=== PATIENT | female | born 1980 | race Caucasian/White ===

== ENCOUNTER 2016-06-24 15:35 | Inpatient (IN) | payer OTHER ==
[~2016-06-24] VITALS: Ht 149.9 cm; Wt 41.8 kg
[~2016-06-24 15:35] MED LIST: AMOX TR-K CLV1 EAC4 PO; AUGMENTIN875 MG PO; B-1100 MG PO; B-121000 MC2 PO; BACTRIM,SEPT1 TABLET PO; CELEXA10 M1 PO; CHLORDIAZEPOXID25 MG PO; CIPRO500 MG PO; CIPROFLOXACIN500 M1 PO; CYANOCOBALAM1000 MCG PO; DILANTIN INFATA50 MG PO; DILANTIN PO; DILANTIN100 MG PO; FOLBIC,FOLTX1 DOSE PO; FOLIC ACID1 MG PO; IRON325 M1 PO; IRON325 MG PO; KEFLEX500 MG PO; KEPPRA250 MG PO; KEPPRA750 MG PO; KLONOPIN1 MG PO; LIBRIUM25 MG PO; LORAZEPAM0.5 MG PO; MEDROXYPROGESTER5 MG PO; MEGACE40 MG PO; METRONIDAZOLE500 MG PO; Motrin PO; NICOTINE PATCH1 EAC1 TD; NICOTINE PATCH1 EAC2 TD; NO HOME MEDS; NOHOMEMEDS; PANTOPRAZOLE SO40 MG PO; PHENYTOIN50 MG PO; SEROQUEL100 MG PO; SEROQUEL300 MG PO; SEROQUEL400 MG PO; SERTRALINE HCL50 MG PO; THERAGRAN1 TABLET PO; THIAMINE HCL100 MG PO; VITAMIN B-1100 MG PO; VITAMIN B-121000 MCG PO; VITAMIN B12-FO1 EACH PO; XIFAXAN550 MG PO; ZOFRAN ODT4 MG PO; ZOFRAN4 MG PO; ZOLOFT100 MG PO; celeXA PO
[2016-06-24 17:09] LABS: EOSINOPHIL (%) 0 % (0-5); HEMATOCRIT 30.7 % (36.0-46.0); IMMATURE GRANULOCYTE (%) 0.3 % (0.0-0.7); IMMATURE GRANULOCYTE COUNT 0.5 K/uL; LYMPHOCYTE COUNT 0.5 K/uL (1.0-2.8); MCH 34.2 PG (29.0-34.0); MCHC 34.2 G/DL (30.0-36.0); MEAN PLAT.VOLUME 9.6 uM^3 (9.5-12.4); MONOCYTE (%) 4.1 % (3-12); MONOCYTE COUNT 0.8 K/uL (0-0.8); NEUTROPHIL (%) 92.7 % (45-76); NEUTROPHIL COUNT 18.6 K/uL (1.8-6.4); PLATELET COUNT 178 K/uL (156-360); RBC DIS.WIDTH-CV 15.4 % (11.8-14.6); RBC DIS.WIDTH-SD 52.9 % (39-53); RED BLOOD COUNT 3.07 M/uL (3.80-5.20)
[2016-06-24 17:17] LABS: INTER. NORMALIZED RATIO 1.2; PROTHROMBIN TIME 12.7 (9.2-11.2)
[2016-06-24 17:20] LABS: CHLORIDE 100 mEq/L (99-109); POTASSIUM 3.2 mEq/L (3.7-5.4); SODIUM 145 mEq/L (136-147)
[2016-06-24 17:22] LABS: GLUCOSE 86 mg/dL (70-99)
[2016-06-24 17:24] LABS: ANION GAP 29 MEQ/L (2-14); TOTAL BILIRUBIN 1.7 mg/dL (0.0-1.0)
[2016-06-24 17:25] LABS: SERUM ETHYL ALCOHOL 151 mg/dL
[2016-06-24 17:26] LABS: ALKALINE PHOSPHATASE 277 IU/L (3-129); GFR ESTIMATE (CALCULATED) > 59 mL/min/
[2016-06-24 17:27] LABS: UREA NITROGEN (BUN) 5 mg/dL (9-23)
[2016-06-24 17:35] LABS: QUANTITATIVE HCG < 4.0 MIU/ML
[2016-06-24] MEDS ORDERED: NITROSTAT0.4 MG SL (19:46)
[2016-06-24 23:20] VITALS: BP 115/57
[2016-06-25] VITALS (7 sets, daily range): BP systolic 88–102; BP diastolic 50–64
[2016-06-25 01:10] LABS: C-REACTIVE PROTEIN 7.8 MG/L (0-10)
[2016-06-25 04:53] LABS: CHLORIDE 103 mEq/L (99-109); POTASSIUM 3.1 mEq/L (3.7-5.4); SODIUM 138 mEq/L (136-147)
[2016-06-25 04:55] LABS: GLUCOSE 94 mg/dL (70-99)
[2016-06-25 04:57] LABS: ANION GAP 15 MEQ/L (2-14); TOTAL BILIRUBIN 1.5 mg/dL (0.0-1.0)
[2016-06-25 04:59] LABS: GFR ESTIMATE (CALCULATED) > 59 mL/min/
[2016-06-25 05:00] LABS: UREA NITROGEN (BUN) 3 mg/dL (9-23)
[2016-06-25 05:03] LABS: EOSINOPHIL (%) 0.1 % (0-5); HEMATOCRIT 24.3 % (36.0-46.0); IMMATURE GRANULOCYTE (%) 0.1 % (0.0-0.7); IMMATURE GRANULOCYTE COUNT 0.1 K/uL; LYMPHOCYTE COUNT 1.4 K/uL (1.0-2.8); MCH 33.5 PG (29.0-34.0); MCHC 33.7 G/DL (30.0-36.0); MCV 99.2 FL (83-99); MONOCYTE (%) 6.6 % (3-12); MONOCYTE COUNT 0.7 K/uL (0-0.8); NEUTROPHIL (%) 78.6 % (45-76); NEUTROPHIL COUNT 7.8 K/uL (1.8-6.4); RBC DIS.WIDTH-CV 15.5 % (11.8-14.6); RBC DIS.WIDTH-SD 51.9 % (39-53)
[2016-06-25 05:05] LABS: RED BLOOD COUNT 2.44 M/uL (3.80-5.20); WHITE BLOOD COUNT 9.9 K/uL (4.1-10.2)
[2016-06-25 05:09] LABS: ALKALINE PHOSPHATASE 198 IU/L (3-129)
[2016-06-25 05:54] LABS: MEAN PLAT.VOLUME 10.2 uM^3 (9.5-12.4); PLAT.SUFFICIENCY DECREASED; PLATELET COUNT 118 K/uL (156-360); USER ID DCS
[2016-06-25 06:03] LABS: INTERNAL CONTROL VALID? YES
[2016-06-25 06:38] LABS: C DIFF TOXIN POSITIVE (NEGATIVE)
[2016-06-25 06:44] LABS: PROBE CHECK PASS
[2016-06-25 18:09] LABS: MCH 33.7 PG (29.0-34.0); MCHC 33.5 G/DL (30.0-36.0); MCV 100.8 FL (83-99); MEAN PLAT.VOLUME 10.9 uM^3 (9.5-12.4); PLATELET COUNT 99 K/uL (156-360); RBC DIS.WIDTH-SD 59.1 % (39-53); RED BLOOD COUNT 2.58 M/uL (3.80-5.20); WHITE BLOOD COUNT 6.9 K/uL (4.1-10.2)
[2016-06-26] VITALS (7 sets, daily range): BP systolic 97–148; BP diastolic 57–81
[2016-06-26 05:54] LABS: HEMATOCRIT 24.5 % (36.0-46.0); MCH 34.2 PG (29.0-34.0); MCHC 33.9 G/DL (30.0-36.0); MCV 100.8 FL (83-99); MEAN PLAT.VOLUME 11.4 uM^3 (9.5-12.4); PLATELET COUNT 88 K/uL (156-360); RBC DIS.WIDTH-CV 15.9 % (11.8-14.6); RBC DIS.WIDTH-SD 58.2 % (39-53); RED BLOOD COUNT 2.43 M/uL (3.80-5.20); WHITE BLOOD COUNT 7.2 K/uL (4.1-10.2)
[2016-06-26 05:59] LABS: ALKALINE PHOSPHATASE 157 IU/L (3-129); ANION GAP 17 MEQ/L (2-14); CHLORIDE 101 MEQ/L (99-109); GFR ESTIMATE (CALCULATED) > 59 mL/min/; SAMPLE HEMOLYSIS CHECK 0; SAMPLE ICTERIC CHECK 0; SAMPLE LIPEMIA CHECK 0; SODIUM 139 MEQ/L (136-147); TOTAL BILIRUBIN 1.7 MG/DL (0.0-1.0); UREA NITROGEN (BUN) 2 mg/dL (9-23)
[2016-06-26 06:19] LABS: GLUCOSE 54 mg/dL (70-99)
[2016-06-26 21:43] LABS: ANION GAP 16 MEQ/L (2-14); CHLORIDE 98 MEQ/L (99-109); POTASSIUM 3.4 MEQ/L (3.7-5.4); SAMPLE HEMOLYSIS CHECK 0; SAMPLE ICTERIC CHECK 0; SAMPLE LIPEMIA CHECK 0; SODIUM 138 MEQ/L (136-147)
[2016-06-26 21:59] LABS: GFR ESTIMATE (CALCULATED) > 59 mL/min/; GLUCOSE 67 mg/dL (70-99); UREA NITROGEN (BUN) < 2 mg/dL (9-23)
[2016-06-27 03:25] VITALS: BP 107/71
[2016-06-27 07:02] LABS: HEMATOCRIT 25.4 % (36.0-46.0); MCH 33.7 PG (29.0-34.0); MCHC 33.9 G/DL (30.0-36.0); MCV 99.6 FL (83-99); MEAN PLAT.VOLUME 10.9 uM^3 (9.5-12.4); PLATELET COUNT 72 K/uL (156-360); RBC DIS.WIDTH-CV 15.9 % (11.8-14.6); RBC DIS.WIDTH-SD 57.7 % (39-53); RED BLOOD COUNT 2.55 M/uL (3.80-5.20); WHITE BLOOD COUNT 6.5 K/uL (4.1-10.2)
[2016-06-27 07:41] LABS: ANION GAP 18 MEQ/L (2-14); CHLORIDE 97 MEQ/L (99-109); GFR ESTIMATE (CALCULATED) > 59 mL/min/; GLUCOSE 65 mg/dL (70-99); POTASSIUM 3.3 MEQ/L (3.7-5.4); SAMPLE HEMOLYSIS CHECK 0; SAMPLE ICTERIC CHECK 0; SAMPLE LIPEMIA CHECK 0; SODIUM 139 MEQ/L (136-147)
[2016-06-27 07:42] LABS: UREA NITROGEN (BUN) < 2 mg/dL (9-23)
[2016-06-27 07:45] VITALS: BP 115/70
[2016-06-27 12:30] VITALS: BP 91/58
[2016-06-27 15:47] VITALS: BP 105/70
[2016-06-27 20:03] VITALS: BP 122/62
[2016-06-28] VITALS (7 sets, daily range): BP systolic 80–116; BP diastolic 52–70
[2016-06-28 05:56] LABS: EOSINOPHIL (%) 1.7 % (0-5); EOSINOPHIL COUNT 0.1 K/uL (0-0.3); HEMATOCRIT 26.6 % (36.0-46.0); LYMPHOCYTE COUNT 1.2 K/uL (1.0-2.8); MCH 33.5 PG (29.0-34.0); MCHC 33.8 G/DL (30.0-36.0); MCV 98.9 FL (83-99); MEAN PLAT.VOLUME 11.2 uM^3 (9.5-12.4); MONOCYTE (%) 10.4 % (3-12); MONOCYTE COUNT 0.5 K/uL (0-0.8); NEUTROPHIL (%) 63.7 % (45-76); NEUTROPHIL COUNT 3.3 K/uL (1.8-6.4); PLATELET COUNT 60 K/uL (156-360); RBC DIS.WIDTH-SD 57.3 % (39-53); RED BLOOD COUNT 2.69 M/uL (3.80-5.20); WHITE BLOOD COUNT 5.2 K/uL (4.1-10.2)
[2016-06-28 06:24] LABS: ANION GAP 7 MEQ/L (2-14); CHLORIDE 100 MEQ/L (99-109); GFR ESTIMATE (CALCULATED) > 59 mL/min/; POTASSIUM 3.2 MEQ/L (3.7-5.4); SAMPLE HEMOLYSIS CHECK 0; SAMPLE ICTERIC CHECK 0; SAMPLE LIPEMIA CHECK 0; SODIUM 140 MEQ/L (136-147)
[2016-06-28 06:26] LABS: GLUCOSE 125 mg/dL (70-99); TOTAL BILIRUBIN 1.3 MG/DL (0.0-1.0); UREA NITROGEN (BUN) < 2 mg/dL (9-23)
[2016-06-28 06:27] LABS: ALKALINE PHOSPHATASE 204 IU/L (3-129)
[2016-06-29 04:00] VITALS: BP 115/76
[2016-06-29 07:27] LABS: HEMATOCRIT 24.3 % (36.0-46.0); MCH 34.1 PG (29.0-34.0); MCV 97.6 FL (83-99); MEAN PLAT.VOLUME 11.5 uM^3 (9.5-12.4); PLATELET COUNT 61 K/uL (156-360); RBC DIS.WIDTH-CV 16.2 % (11.8-14.6); RBC DIS.WIDTH-SD 56.7 % (39-53); RED BLOOD COUNT 2.49 M/uL (3.80-5.20)
[2016-06-29 07:40] LABS: EOSINOPHIL (%) 1.6 % (0-5); EOSINOPHIL COUNT 0.1 K/uL (0-0.3); LYMPHOCYTE COUNT 1.3 K/uL (1.0-2.8); MONOCYTE (%) 13.3 % (3-12); MONOCYTE COUNT 0.7 K/uL (0-0.8); NEUTROPHIL (%) 59.2 % (45-76)
[2016-06-29 08:05] LABS: ALKALINE PHOSPHATASE 173 IU/L (3-129); ANION GAP 7 MEQ/L (2-14); CHLORIDE 103 MEQ/L (99-109); GFR ESTIMATE (CALCULATED) > 59 mL/min/; GLUCOSE 118 mg/dL (70-99); POTASSIUM 3.1 MEQ/L (3.7-5.4); SAMPLE HEMOLYSIS CHECK 0; SAMPLE ICTERIC CHECK 0; SAMPLE LIPEMIA CHECK 0; SODIUM 139 MEQ/L (136-147)
[2016-06-29 08:09] LABS: UREA NITROGEN (BUN) < 2 mg/dL (9-23)
[2016-06-29 08:14] VITALS: BP 92/58
[2016-06-29 16:29] VITALS: BP 98/62
[2016-06-29 20:30] VITALS: BP 126/80
[2016-06-29 23:15] VITALS: BP 130/74
[2016-06-30 04:25] VITALS: BP 120/66
[2016-06-30 06:15] LABS: MCH 33.2 PG (29.0-34.0); MCHC 33.8 G/DL (30.0-36.0); MCV 98.1 FL (83-99); MEAN PLAT.VOLUME 11.7 uM^3 (9.5-12.4); PLATELET COUNT 77 K/uL (156-360); RBC DIS.WIDTH-CV 16.8 % (11.8-14.6); RBC DIS.WIDTH-SD 59.3 % (39-53); RED BLOOD COUNT 2.65 M/uL (3.80-5.20)
[2016-06-30 06:27] LABS: EOSINOPHIL (%) 1.2 % (0-5); EOSINOPHIL COUNT 0.1 K/uL (0-0.3); IMMATURE GRANULOCYTE (%) 0.2 % (0.0-0.7); LYMPHOCYTE COUNT 1.5 K/uL (1.0-2.8); MONOCYTE (%) 15.4 % (3-12); MONOCYTE COUNT 0.8 K/uL (0-0.8); NEUTROPHIL (%) 53.5 % (45-76); NEUTROPHIL COUNT 2.7 K/uL (1.8-6.4)
[2016-06-30 06:51] LABS: ANION GAP 6 MEQ/L (2-14); CHLORIDE 103 MEQ/L (99-109); GFR ESTIMATE (CALCULATED) > 59 mL/min/; GLUCOSE 98 mg/dL (70-99); POTASSIUM 3.1 MEQ/L (3.7-5.4); SAMPLE HEMOLYSIS CHECK 0; SAMPLE ICTERIC CHECK 0; SAMPLE LIPEMIA CHECK 0; SODIUM 139 MEQ/L (136-147)
[2016-06-30 07:02] LABS: UREA NITROGEN (BUN) < 2 mg/dL (9-23)
[2016-06-30 08:47] VITALS: BP 110/70
[2016-06-30 15:05] VITALS: BP 101/70
[2016-06-30 20:42] VITALS: BP 130/66
[2016-06-30 23:15] VITALS: BP 118/62
[2016-07-01 04:12] VITALS: BP 100/69
[2016-07-01 07:00] VITALS: BP 128/64
[2016-07-01 11:55] VITALS: BP 112/68
[2016-07-01 15:33] VITALS: BP 107/62
[2016-07-01 19:45] VITALS: BP 110/50
[2016-07-01 23:20] VITALS: BP 109/70
[2016-07-02 03:35] VITALS: BP 90/60
[2016-07-02 07:44] VITALS: BP 122/65
[2016-07-02 08:49] LABS: HEMATOCRIT 26.6 % (36.0-46.0); MCH 33.2 PG (29.0-34.0); MCHC 33.8 G/DL (30.0-36.0); MCV 98.2 FL (83-99); RBC DIS.WIDTH-CV 17.1 % (11.8-14.6); RBC DIS.WIDTH-SD 60.4 % (39-53); RED BLOOD COUNT 2.71 M/uL (3.80-5.20); WHITE BLOOD COUNT 4.4 K/uL (4.1-10.2)
[2016-07-02 09:12] LABS: ANION GAP 2 MEQ/L (2-14); CHLORIDE 103 MEQ/L (99-109); GFR ESTIMATE (CALCULATED) > 59 mL/min/; GLUCOSE 74 mg/dL (70-99); POTASSIUM 4.1 MEQ/L (3.7-5.4); SAMPLE HEMOLYSIS CHECK 0; SAMPLE ICTERIC CHECK 0; SAMPLE LIPEMIA CHECK 0; SODIUM 136 MEQ/L (136-147)
[2016-07-02 09:22] LABS: EOSINOPHIL (%) 1.8 % (0-5); EOSINOPHIL COUNT 0.1 K/uL (0-0.3); IMMATURE GRANULOCYTE (%) 0.5 % (0.0-0.7); LYMPHOCYTE COUNT 1.3 K/uL (1.0-2.8); MONOCYTE (%) 20.8 % (3-12); MONOCYTE COUNT 0.9 K/uL (0-0.8); NEUTROPHIL (%) 46.8 % (45-76); NEUTROPHIL COUNT 2.1 K/uL (1.8-6.4)
[2016-07-02 10:24] LABS: HEMATOLOGY COMMENT 1 SMEAR COMPATIBLE; MEAN PLAT.VOLUME 11.4 uM^3 (9.5-12.4); PLAT.SUFFICIENCY ADEQUATE; USER ID MCB
[2016-07-02 10:25] LABS: PLATELET COUNT 162 K/uL (156-360)
[2016-07-02 11:00] VITALS: BP 90/68
[2016-07-02 13:02] LABS: UREA NITROGEN (BUN) < 2 mg/dL (9-23)
[2016-07-02 15:25] VITALS: BP 95/67
[2016-07-02] MEDS ORDERED: VANCOCIN 250 M250 MG PO (16:14)
[2016-07-02] MEDS ORDERED: CHOLESTYRAMINE P4 GM PO (16:17)
[2016-07-02] MEDS ORDERED: FLORASTOR250 MG PO (16:17)
[2016-07-02] MEDS ORDERED: Thiamine,Vitamin B1 PO (16:17)
[2016-07-02] MEDS ORDERED: METRONIDAZOLE500 MG PO (16:17)
[2016-07-02] MEDS ORDERED: NICOTINE PATCH1 EAC1 TD (16:17)
[2016-07-02] MEDS ORDERED: CAMPRAL333 MG PO (16:23)
[2016-07-02] MEDS ORDERED: VANCOCIN HCL125 MG PO (16:27)
== END 2016-07-02 17:42 | disposition home or self-care (01) | DRG 372 ==
LOC: EME 15:35 → 4SOUTH 22:17 → EDOF 22:17 → 4SOUTH 23:48
PROVIDERS: Emergency Medicine; Hospitalist; Nurse Practitioner Adult Health; Physician Assistant; Physician Assistant Medical
DX: A04.7 Enterocolitis due to Clostridium difficile (principal); K51.00 Ulcerative (chronic) pancolitis without complications; E87.2 Acidosis; D69.6 Thrombocytopenia, unspecified; G89.29 Other chronic pain; E11.9 Type 2 diabetes mellitus without complications; I10 Essential (primary) hypertension; I25.2 Old myocardial infarction; K21.9 Gastro-esophageal reflux disease without esophagitis; F10.20 Alcohol dependence, uncomplicated; D72.829 Elevated white blood cell count, unspecified; K29.70 Gastritis, unspecified, without bleeding; F31.9 Bipolar disorder, unspecified; E87.6 Hypokalemia; G40.909 Epilepsy, unspecified, not intractable, without status epilepticus; K70.10 Alcoholic hepatitis without ascites; K74.60 Unspecified cirrhosis of liver; F17.210 Nicotine dependence, cigarettes, uncomplicated; B96.7 Clostridium perfringens [C. perfringens] as the cause of diseases classified elsewhere; F43.10 Post-traumatic stress disorder, unspecified; K76.0 Fatty (change of) liver, not elsewhere classified
CPT/HCPCS: 74177; 80048; 80048 91; 80053; 80076; 80185; 82272; 82330; 83605; 83690; 83735; 84100; 84702; 85025; 85027; 85610; 86140; 86850; 86900; 86901; 87040; 87177; 87493; 99281; 99285; C9113; G0480; J0744; J1165; J1170; J1644; J2405; J2543; J2765; J3370; J3480; J7030; J7050; S0028; S0030

== ENCOUNTER 2016-09-26 00:15 | Observation (INO) | payer OTHER ==
[~2016-09-26] VITALS: Ht 149.9 cm; Wt 49.4 kg
[~2016-09-26 00:15] MED LIST changes: +CAMPRAL333 MG PO; +CHOLESTYRAMINE P4 GM PO; +FLORASTOR250 MG PO; +NITROSTAT0.4 MG SL; +Thiamine,Vitamin B1 PO; +VANCOCIN 250 M250 MG PO; +VANCOCIN HCL125 MG PO
[2016-09-26 00:47] LABS: BASOPHIL COUNT 0.1 K/uL (0-0.1); EOSINOPHIL (%) 0.3 % (0-5); HEMATOCRIT 30.1 % (36.0-46.0); IMMATURE GRANULOCYTE (%) 0.5 % (0.0-0.7); IMMATURE GRANULOCYTE COUNT 0.1 K/uL; INSTRUMENT ABS NEUTROPHIL CT 10.3 K/uL; LYMPHOCYTE COUNT 3.3 K/uL (1.0-2.8); MCH 30.3 PG (29.0-34.0); MCHC 32.9 G/DL (30.0-36.0); MEAN PLAT.VOLUME 9.3 uM^3 (9.5-12.4); MONOCYTE COUNT 1.2 K/uL (0-0.8); NEUTROPHIL (%) 68.9 % (45-76); NEUTROPHIL COUNT 10.3 K/uL (1.8-6.4); PLATELET COUNT 411 K/uL (156-360); RBC DIS.WIDTH-CV 15.3 % (11.8-14.6); RBC DIS.WIDTH-SD 51.2 % (39-53); RED BLOOD COUNT 3.27 M/uL (3.80-5.20); WHITE BLOOD COUNT 14.9 K/uL (4.1-10.2)
[2016-09-26 00:55] LABS: CHLORIDE 106 mEq/L (99-109); POTASSIUM 3.5 mEq/L (3.7-5.4); SODIUM 141 mEq/L (136-147)
[2016-09-26 00:57] LABS: GLUCOSE 104 mg/dL (70-99)
[2016-09-26 00:58] LABS: ANION GAP 13 MEQ/L (2-14)
[2016-09-26 00:59] LABS: TOTAL BILIRUBIN 0.5 mg/dL (0.0-1.0)
[2016-09-26 01:01] LABS: ALKALINE PHOSPHATASE 123 IU/L (3-129); GFR ESTIMATE (CALCULATED) > 59 mL/min/
[2016-09-26 01:02] LABS: UREA NITROGEN (BUN) 6 mg/dL (9-23)
[2016-09-26 01:04] LABS: LIPASE 21 U/L (1.0-51.0)
[2016-09-26 01:07] LABS: TROP-I INTERPRETATION NEGATIVE; TROPONIN-I < 0.01 ng/mL (0.0-0.30)
[2016-09-26 01:12] LABS: QUANTITATIVE HCG < 4.0 MIU/ML
[2016-09-26 01:37] LABS: D-DIMER ELISA 0.26 mg/L FEU (< 0.57)
[2016-09-26 07:28] VITALS: BP 106/71
[2016-09-26] MEDS ORDERED: QUESTRAN PACKET4 GM PO (09:01)
[2016-09-26] MEDS ORDERED: VITAMIN B-1100 MG PO (09:02)
[2016-09-26] MEDS ORDERED: VITAMIN D400 UNI1 PO (09:03)
[2016-09-26] MEDS ORDERED: ONE-A-DAY ESSE1 EAC1 PO (09:03)
[2016-09-26] MEDS ORDERED: ERGOCALCIF50000 UNIT PO (09:03)
[2016-09-26 09:15] LABS: BASOPHIL COUNT 0.1 K/uL (0-0.1); EOSINOPHIL (%) 0.7 % (0-5); EOSINOPHIL COUNT 0.1 K/uL (0-0.3); HEMATOCRIT 27.3 % (36.0-46.0); IMMATURE GRANULOCYTE (%) 0.5 % (0.0-0.7); IMMATURE GRANULOCYTE COUNT 0.1 K/uL; INSTRUMENT ABS NEUTROPHIL CT 9.9 K/uL; LYMPHOCYTE COUNT 2.2 K/uL (1.0-2.8); MCH 30.5 PG (29.0-34.0); MCV 92.5 FL (83-99); MEAN PLAT.VOLUME 8.9 uM^3 (9.5-12.4); MONOCYTE (%) 10.2 % (3-12); MONOCYTE COUNT 1.4 K/uL (0-0.8); NEUTROPHIL (%) 72.2 % (45-76); NEUTROPHIL COUNT 9.9 K/uL (1.8-6.4); PLATELET COUNT 291 K/uL (156-360); RBC DIS.WIDTH-CV 15.6 % (11.8-14.6); RBC DIS.WIDTH-SD 52.6 % (39-53); RED BLOOD COUNT 2.95 M/uL (3.80-5.20); WHITE BLOOD COUNT 13.7 K/uL (4.1-10.2)
[2016-09-26 09:38] LABS: ALKALINE PHOSPHATASE 117 IU/L (3-129); ANION GAP 9 MEQ/L (2-14); CHLORIDE 107 MEQ/L (99-109); GFR ESTIMATE (CALCULATED) > 59 mL/min/; GLUCOSE 85 mg/dL (70-99); SAMPLE HEMOLYSIS CHECK 0; SAMPLE ICTERIC CHECK 0; SAMPLE LIPEMIA CHECK 0; SODIUM 139 MEQ/L (136-147); TOTAL BILIRUBIN 0.4 MG/DL (0.0-1.0); UREA NITROGEN (BUN) 5 mg/dL (9-23)
[2016-09-26 09:50] LABS: TROP-I INTERPRETATION NEGATIVE; TROPONIN-I < 0.01 ng/mL (0.0-0.30)
[2016-09-26 11:44] VITALS: BP 99/66
[2016-09-26 16:14] VITALS: BP 110/54
[2016-09-26 17:12] LABS: BASOPHIL COUNT 0.1 K/uL (0-0.1); EOSINOPHIL (%) 0.9 % (0-5); EOSINOPHIL COUNT 0.1 K/uL (0-0.3); HEMATOCRIT 28.7 % (36.0-46.0); IMMATURE GRANULOCYTE (%) 0.5 % (0.0-0.7); IMMATURE GRANULOCYTE COUNT 0.1 K/uL; LYMPHOCYTE COUNT 2.5 K/uL (1.0-2.8); MCH 30.5 PG (29.0-34.0); MCHC 32.8 G/DL (30.0-36.0); MCV 93.2 FL (83-99); MEAN PLAT.VOLUME 9.4 uM^3 (9.5-12.4); MONOCYTE (%) 11.4 % (3-12); MONOCYTE COUNT 1.1 K/uL (0-0.8); NEUTROPHIL (%) 61.1 % (45-76); PLATELET COUNT 327 K/uL (156-360); RBC DIS.WIDTH-CV 15.6 % (11.8-14.6); RBC DIS.WIDTH-SD 52.9 % (39-53); RED BLOOD COUNT 3.08 M/uL (3.80-5.20); WHITE BLOOD COUNT 9.9 K/uL (4.1-10.2)
[2016-09-26 17:31] LABS: TROP-I INTERPRETATION NEGATIVE; TROPONIN-I < 0.01 ng/mL (0.0-0.30)
[2016-09-26 17:36] LABS: ALKALINE PHOSPHATASE 108 IU/L (3-129); ANION GAP 7 MEQ/L (2-14); CHLORIDE 103 MEQ/L (99-109); GFR ESTIMATE (CALCULATED) > 59 mL/min/; GLUCOSE 94 mg/dL (70-99); POTASSIUM 4.2 MEQ/L (3.7-5.4); SAMPLE HEMOLYSIS CHECK 0; SAMPLE ICTERIC CHECK 0; SAMPLE LIPEMIA CHECK 0; SODIUM 135 MEQ/L (136-147); TOTAL BILIRUBIN 0.4 MG/DL (0.0-1.0); UREA NITROGEN (BUN) 6 mg/dL (9-23)
[2016-09-26 21:00] VITALS: BP 108/76
[2016-09-27 00:20] VITALS: BP 99/59
[2016-09-27 04:11] VITALS: BP 106/74
[2016-09-27 07:13] LABS: BASOPHIL COUNT 0.1 K/uL (0-0.1); EOSINOPHIL (%) 1.4 % (0-5); EOSINOPHIL COUNT 0.1 K/uL (0-0.3); HEMATOCRIT 29.7 % (36.0-46.0); IMMATURE GRANULOCYTE (%) 0.6 % (0.0-0.7); IMMATURE GRANULOCYTE COUNT 0.1 K/uL; INSTRUMENT ABS NEUTROPHIL CT 6.4 K/uL; LYMPHOCYTE COUNT 2.1 K/uL (1.0-2.8); MCH 30.1 PG (29.0-34.0); MCHC 32.3 G/DL (30.0-36.0); MCV 93.1 FL (83-99); MEAN PLAT.VOLUME 9.7 uM^3 (9.5-12.4); MONOCYTE COUNT 0.9 K/uL (0-0.8); NEUTROPHIL (%) 66.7 % (45-76); NEUTROPHIL COUNT 6.4 K/uL (1.8-6.4); PLATELET COUNT 317 K/uL (156-360); RBC DIS.WIDTH-CV 15.4 % (11.8-14.6); RBC DIS.WIDTH-SD 52.5 % (39-53); RED BLOOD COUNT 3.19 M/uL (3.80-5.20); WHITE BLOOD COUNT 9.6 K/uL (4.1-10.2)
[2016-09-27 07:43] LABS: ALKALINE PHOSPHATASE 110 IU/L (3-129); ANION GAP 9 MEQ/L (2-14); CHLORIDE 104 MEQ/L (99-109); GFR ESTIMATE (CALCULATED) > 59 mL/min/; GLUCOSE 108 mg/dL (70-99); POTASSIUM 4.1 MEQ/L (3.7-5.4); SAMPLE HEMOLYSIS CHECK 0; SAMPLE ICTERIC CHECK 0; SAMPLE LIPEMIA CHECK 0; SODIUM 138 MEQ/L (136-147); TOTAL BILIRUBIN 0.4 MG/DL (0.0-1.0); UREA NITROGEN (BUN) 7 mg/dL (9-23)
[2016-09-27 08:30] VITALS: BP 98/54
[2016-09-27] MEDS ORDERED: MOTRIN600 MG PO (08:44)
[2016-09-27] MEDS ORDERED: LO-DOSE ASPIRIN81 M2 PO (08:51)
[2016-09-27] MEDS ORDERED: PRAVACHOL40 MG PO (08:51)
[2016-09-27] MEDS ORDERED: PEPCID20 MG PO (08:53)
== END 2016-09-27 09:56 | disposition home or self-care (01) ==
LOC: EME 00:15 → EDOF 05:58 → 5WEST 07:05
PROVIDERS: Emergency Medicine; Hospitalist; Internal Medicine
DX: R07.89 Other chest pain (principal); E87.6 Hypokalemia; D64.9 Anemia, unspecified; I25.2 Old myocardial infarction; G89.29 Other chronic pain; R10.9 Unspecified abdominal pain; I10 Essential (primary) hypertension; E11.9 Type 2 diabetes mellitus without complications; F10.10 Alcohol abuse, uncomplicated; F31.9 Bipolar disorder, unspecified; K70.9 Alcoholic liver disease, unspecified; D72.829 Elevated white blood cell count, unspecified; D47.3 Essential (hemorrhagic) thrombocythemia
CPT/HCPCS: 71020; 71275; 74177; 80053; 81003; 83690; 84484; 84702; 85025; 85025 91; 85379; 93005; 99281; 99285; G0378; J1885; J2270; J3010; J7030

== ENCOUNTER 2016-12-18 20:39 | Inpatient (IN) | payer OTHER ==
[~2016-12-18] VITALS: Ht 149.9 cm; Wt 40.9 kg
[~2016-12-18 20:39] MED LIST changes: +ERGOCALCIF50000 UNIT PO; +LO-DOSE ASPIRIN81 M2 PO; +MOTRIN600 MG PO; +ONE-A-DAY ESSE1 EAC1 PO; +PEPCID20 MG PO; +PRAVACHOL40 MG PO; +QUESTRAN PACKET4 GM PO; +VITAMIN D400 UNI1 PO
[2016-12-18 21:26] LABS: HEMATOCRIT 32.7 % (36.0-46.0); MCH 30.3 PG (29.0-34.0); MCV 91.6 FL (83-99); MEAN PLAT.VOLUME 9.8 uM^3 (9.5-12.4); NRBC (%) 0.3 /100 WBC (0-0); PLATELET COUNT 176 K/uL (156-360); RBC DIS.WIDTH-CV 23.5 % (11.8-14.6); RBC DIS.WIDTH-SD 77.2 % (39-53); RED BLOOD COUNT 3.57 M/uL (3.80-5.20); WHITE BLOOD COUNT 11.4 K/uL (4.1-10.2)
[2016-12-18 21:41] LABS: CHLORIDE 91 mEq/L (99-109); POTASSIUM 3.2 mEq/L (3.7-5.4); SODIUM 138 mEq/L (136-147)
[2016-12-18 21:43] LABS: GLUCOSE 70 mg/dL (70-99)
[2016-12-18 21:45] LABS: ANION GAP 32 MEQ/L (2-14); TOTAL BILIRUBIN 1.2 mg/dL (0.0-1.0)
[2016-12-18 21:47] LABS: ALKALINE PHOSPHATASE 215 IU/L (3-129); GFR ESTIMATE (CALCULATED) > 59 mL/min/
[2016-12-18 21:48] LABS: UREA NITROGEN (BUN) 9 mg/dL (9-23)
[2016-12-18 21:49] LABS: DIRECT BILIRUBIN 0.8 mg/dL (0.0-0.3)
[2016-12-18 21:50] LABS: LIPASE 24 U/L (1.0-51.0)
[2016-12-18 22:02] LABS: QUANTITATIVE HCG < 4.0 MIU/ML
[2016-12-18 22:08] LABS: INTER. NORMALIZED RATIO 1.1; PROTHROMBIN TIME 11.4 (9.2-11.2)
[2016-12-18 22:44] LABS: ADD MIUA? YES; BILIRUBIN SMALL; BLOOD NEGATIVE; COLOR AMBER ((YELLOW)); GLUCOSE (STRIP) NEGATIVE; KETONES 80; LEUKOCYTES NEGATIVE; NITRITE POSITIVE; PROTEIN (STRIP) 100; SPECIFIC GRAVITY 1.017 (1.000-1.030)
[2016-12-18 22:59] LABS: EPITHELIAL CELLS RARE /HPF; RED BLOOD CELLS NONE SEEN /HPF (0-5); WHITE BLOOD CELLS NONE SEEN /HPF (0-5)
[2016-12-18 23:00] LABS: AMORPHOUS URATES CRYSTALS 3+; BACTERIA 2+ /HPF; CASTS NONE SEEN /LPF; CRYSTALS PRESENT; MUCUS NONE SEEN /LPF; UCUL ADDED? NO
[2016-12-19 00:07] LABS: SERUM ETHYL ALCOHOL 117 mg/dL
[2016-12-19 02:32] LABS: MAGNESIUM 1.2 mg/dL (1.3-2.7)
[2016-12-19 03:37] LABS: C-REACTIVE PROTEIN 8.1 MG/L (0-10)
[2016-12-19 03:56] VITALS: BP 111/73
[2016-12-19 07:09] LABS: HEMATOCRIT 26.8 % (36.0-46.0); MCH 31.5 PG (29.0-34.0); MCHC 33.6 G/DL (30.0-36.0); MCV 93.7 FL (83-99); MEAN PLAT.VOLUME 10.1 uM^3 (9.5-12.4); PLATELET COUNT 140 K/uL (156-360); RBC DIS.WIDTH-CV 23.8 % (11.8-14.6); RED BLOOD COUNT 2.86 M/uL (3.80-5.20); WHITE BLOOD COUNT 12.2 K/uL (4.1-10.2)
[2016-12-19 07:15] LABS: EOSINOPHIL (%) 0.1 % (0-5); IMMATURE GRANULOCYTE COUNT 0.1 K/uL; INSTRUMENT ABS NEUTROPHIL CT 10.1 K/uL; MONOCYTE (%) 7.8 % (3-12); NEUTROPHIL COUNT 10.1 K/uL (1.8-6.4)
[2016-12-19 07:32] LABS: GLUCOSE 55 mg/dL (70-99); UREA NITROGEN (BUN) 5 mg/dL (9-23)
[2016-12-19 07:33] LABS: ALKALINE PHOSPHATASE 155 IU/L (3-129); ANION GAP 23 MEQ/L (2-14); CHLORIDE 97 MEQ/L (99-109); GFR ESTIMATE (CALCULATED) > 59 mL/min/; POTASSIUM 3.6 MEQ/L (3.7-5.4); SAMPLE HEMOLYSIS CHECK 0; SAMPLE ICTERIC CHECK 0; SAMPLE LIPEMIA CHECK 0; SODIUM 139 MEQ/L (136-147); TOTAL BILIRUBIN 1.1 MG/DL (0.0-1.0)
[2016-12-19 07:35] LABS: INTERNAL CONTROL VALID? YES
[2016-12-19 08:01] VITALS: BP 102/66
[2016-12-19 12:14] LABS: C DIFF TOXIN POSITIVE (NEGATIVE)
[2016-12-19 12:18] LABS: PROBE CHECK PASS
[2016-12-19 14:52] VITALS: BP 104/57
[2016-12-19 15:47] VITALS: BP 100/59
[2016-12-19 20:25] VITALS: BP 105/67
[2016-12-19 23:46] VITALS: BP 110/66
[2016-12-20 05:08] VITALS: BP 107/69
[2016-12-20 06:45] LABS: HEMATOCRIT 25.7 % (36.0-46.0); MCH 30.8 PG (29.0-34.0); MCHC 32.7 G/DL (30.0-36.0); MCV 94.1 FL (83-99); MEAN PLAT.VOLUME 10.4 uM^3 (9.5-12.4); NRBC (%) 0.2 /100 WBC (0-0); PLATELET COUNT 119 K/uL (156-360); RBC DIS.WIDTH-CV 23.3 % (11.8-14.6); RED BLOOD COUNT 2.73 M/uL (3.80-5.20); WHITE BLOOD COUNT 8.2 K/uL (4.1-10.2)
[2016-12-20 07:10] LABS: ANION GAP 11 MEQ/L (2-14); CHLORIDE 98 MEQ/L (99-109); GFR ESTIMATE (CALCULATED) > 59 mL/min/; POTASSIUM 3.3 MEQ/L (3.7-5.4); SAMPLE HEMOLYSIS CHECK 0; SAMPLE ICTERIC CHECK 0; SAMPLE LIPEMIA CHECK 0; SODIUM 134 MEQ/L (136-147); UREA NITROGEN (BUN) 3 mg/dL (9-23)
[2016-12-20 07:12] LABS: GLUCOSE 99 mg/dL (70-99)
[2016-12-20 11:33] VITALS: BP 108/76
[2016-12-20 20:19] VITALS: BP 110/76
[2016-12-20 23:50] VITALS: BP 102/64
[2016-12-21 03:53] VITALS: BP 106/78
[2016-12-21 06:59] LABS: HEMATOCRIT 26.3 % (36.0-46.0); MCH 30.2 PG (29.0-34.0); MCHC 32.3 G/DL (30.0-36.0); MCV 93.6 FL (83-99); MEAN PLAT.VOLUME 10.4 uM^3 (9.5-12.4); NRBC (%) 0.4 /100 WBC (0-0); PLATELET COUNT 115 K/uL (156-360); RBC DIS.WIDTH-CV 23.1 % (11.8-14.6); RBC DIS.WIDTH-SD 77.8 % (39-53); RED BLOOD COUNT 2.81 M/uL (3.80-5.20); WHITE BLOOD COUNT 5.3 K/uL (4.1-10.2)
[2016-12-21 08:06] VITALS: BP 119/83
[2016-12-21 08:06] LABS: ANION GAP 7 MEQ/L (2-14); CHLORIDE 104 MEQ/L (99-109); GFR ESTIMATE (CALCULATED) > 59 mL/min/; GLUCOSE 81 mg/dL (70-99); POTASSIUM 3.3 MEQ/L (3.7-5.4); SAMPLE HEMOLYSIS CHECK 0; SAMPLE ICTERIC CHECK 0; SAMPLE LIPEMIA CHECK 0; SODIUM 140 MEQ/L (136-147)
[2016-12-21 08:09] LABS: UREA NITROGEN (BUN) < 2 mg/dL (9-23)
[2016-12-21 13:11] VITALS: BP 107/68
[2016-12-21 16:46] VITALS: BP 128/91
[2016-12-21 20:07] VITALS: BP 118/74
[2016-12-21 23:40] VITALS: BP 121/77
[2016-12-22 03:48] VITALS: BP 109/68
[2016-12-22 07:05] LABS: ANION GAP 8 MEQ/L (2-14); CHLORIDE 102 MEQ/L (99-109); GFR ESTIMATE (CALCULATED) > 59 mL/min/; POTASSIUM 3.5 MEQ/L (3.7-5.4); SAMPLE HEMOLYSIS CHECK 1; SAMPLE ICTERIC CHECK 0; SAMPLE LIPEMIA CHECK 0; SODIUM 140 MEQ/L (136-147)
[2016-12-22 07:06] LABS: GLUCOSE 106 mg/dL (70-99); UREA NITROGEN (BUN) < 2 mg/dL (9-23)
[2016-12-22 07:26] VITALS: BP 108/78
[2016-12-22 10:38] VITALS: BP 138/92
[2016-12-22 23:34] VITALS: BP 109/77
[2016-12-23 03:58] VITALS: BP 104/71
[2016-12-23] MEDS ORDERED: VANCOCIN HCL125 MG PO (14:56)
[2016-12-23 16:45] VITALS: BP 108/74
== END 2016-12-23 19:25 | disposition home or self-care (01) | DRG 372 ==
LOC: EME 20:39 → EDOF 12-19 01:23 → 3EAST 12-19 01:23
PROVIDERS: Hospitalist; Internal Medicine Gastroenterology; Physician Assistant; Physician Assistant Medical
DX: A04.7 Enterocolitis due to Clostridium difficile (principal); E86.0 Dehydration; E87.2 Acidosis; E87.6 Hypokalemia; F10.239 Alcohol dependence with withdrawal, unspecified; Y90.5 Blood alcohol level of 100-119 mg/100 ml; K70.0 Alcoholic fatty liver; D64.9 Anemia, unspecified; E11.9 Type 2 diabetes mellitus without complications; K51.90 Ulcerative colitis, unspecified, without complications; I10 Essential (primary) hypertension; G40.909 Epilepsy, unspecified, not intractable, without status epilepticus; G43.909 Migraine, unspecified, not intractable, without status migrainosus; K21.9 Gastro-esophageal reflux disease without esophagitis; E78.5 Hyperlipidemia, unspecified; F31.9 Bipolar disorder, unspecified; I25.2 Old myocardial infarction; F43.10 Post-traumatic stress disorder, unspecified; F17.210 Nicotine dependence, cigarettes, uncomplicated; Z68.1 Body mass index [BMI] 19.9 or less, adult; Z79.82 Long term (current) use of aspirin; Z80.1 Family history of malignant neoplasm of trachea, bronchus and lung
CPT/HCPCS: 74177; 80048; 80053; 80069; 81003; 82248; 82272; 83605; 83690; 83735; 84702; 85025; 85027; 85610; 86140; 87040; 87493; 99281; 99285; C9113; G0480; J0744; J1170; J1200; J2060; J2270; J2405; J2765; J3010; J3411; J3475; J3480; J7030; S0030

== ENCOUNTER 2017-03-31 13:21 | Inpatient (IN) | payer OTHER ==
[~2017-03-31] VITALS: Ht 149.9 cm; Wt 48.1 kg
[~2017-03-31 13:21] MED LIST changes: +VITAMIN D-3 401 EACH PO; -VITAMIN D400 UNI1 PO
[2017-03-31 15:19] LABS: ADD MIUA? YES; BILIRUBIN NEGATIVE; BLOOD MODERATE; COLOR AMBER ((YELLOW)); GLUCOSE (STRIP) NEGATIVE; KETONES 80; LEUKOCYTES NEGATIVE; NITRITE POSITIVE; PROTEIN (STRIP) 30; SPECIFIC GRAVITY 1.019 (1.000-1.030)
[2017-03-31 15:26] LABS: HEMATOCRIT 30.3 % (36.0-46.0); MCH 32.6 PG (29.0-34.0); MCHC 34.3 G/DL (30.0-36.0); MEAN PLAT.VOLUME 12.1 uM^3 (9.5-12.4); NRBC (%) 0.2 /100 WBC (0-0); PLATELET COUNT 87 K/uL (156-360); RBC DIS.WIDTH-CV 23.1 % (11.8-14.6); RBC DIS.WIDTH-SD 79.7 % (39-53); RED BLOOD COUNT 3.19 M/uL (3.80-5.20); WHITE BLOOD COUNT 9.8 K/uL (4.1-10.2)
[2017-03-31 15:38] LABS: BACTERIA 4+ /HPF; EPITHELIAL CELLS 2+ /HPF; MUCUS NONE SEEN /LPF; RED BLOOD CELLS 0-5 /HPF (0-5); UCUL ADDED? YES; WHITE BLOOD CELLS 0-5 /HPF (0-5)
[2017-03-31 15:45] LABS: CHLORIDE 96 mEq/L (99-109); POTASSIUM 3.4 mEq/L (3.7-5.4); SODIUM 141 mEq/L (136-147)
[2017-03-31 15:48] LABS: GLUCOSE 63 mg/dL (70-99)
[2017-03-31 15:49] LABS: ANION GAP 31 MEQ/L (2-14); TOTAL BILIRUBIN 5.8 mg/dL (0.0-1.0)
[2017-03-31 15:50] LABS: SERUM ETHYL ALCOHOL 255 mg/dL
[2017-03-31 15:51] LABS: ALKALINE PHOSPHATASE 327 IU/L (3-129); GFR ESTIMATE (CALCULATED) > 59 mL/min/
[2017-03-31 15:52] LABS: UREA NITROGEN (BUN) 10 mg/dL (9-23)
[2017-03-31 15:55] LABS: LIPASE 9 U/L (1.0-51.0)
[2017-03-31 15:56] LABS: QUANTITATIVE HCG < 4.0 MIU/ML
[2017-03-31 18:03] LABS: CHLORIDE 96 mEq/L (99-109); POTASSIUM 3.6 mEq/L (3.7-5.4); SODIUM 143 mEq/L (136-147)
[2017-03-31 18:05] LABS: GLUCOSE 68 mg/dL (70-99)
[2017-03-31 18:06] LABS: ANION GAP 36 MEQ/L (2-14)
[2017-03-31 18:09] LABS: GFR ESTIMATE (CALCULATED) > 59 mL/min/
[2017-03-31 18:10] LABS: UREA NITROGEN (BUN) 11 mg/dL (9-23)
[2017-03-31] MEDS ORDERED: LO-DOSE ASPIRIN81 M2 PO (18:56)
[2017-03-31] MEDS ORDERED: ZOFRAN4 MG PO (18:58)
[2017-03-31 20:46] LABS: POINT-OF-CARE METER ID UU13113702
[2017-03-31 21:15] LABS: MAGNESIUM 1.4 mg/dL (1.3-2.7)
[2017-03-31 22:04] VITALS: BP 99/58
[2017-03-31 23:58] VITALS: BP 115/67
[2017-04-01 00:03] LABS: SODIUM 146 mEq/L (136-147)
[2017-04-01 00:05] LABS: GLUCOSE 59 mg/dL (70-99)
[2017-04-01 00:06] LABS: ANION GAP 32 MEQ/L (2-14)
[2017-04-01 00:09] LABS: GFR ESTIMATE (CALCULATED) > 59 mL/min/; UREA NITROGEN (BUN) 10 mg/dL (9-23)
[2017-04-01 00:19] LABS: CHLORIDE 106 mEq/L (99-109)
[2017-04-01 00:54] LABS: BASE EXCESS -18.6 mEq/L (-3 to +3); BICARBONATE 8.7 mEq/L (22-26); CARBOXY HGB 2.3 % (0-5); COMMENTS - BLOOD GASES C+; FI02 21 %; METHEMOGLOBIN 1.7 % (0-1.5); PCO2 25 mm Hg (35-45); PO2 105 mm Hg (80-100); SITE RR; TOTAL RESP RATE 20 resp/min; pH 7.15 (7.35-7.45)
[2017-04-01 03:29] VITALS: BP 110/63
[2017-04-01 05:42] LABS: EOSINOPHIL (%) 0 % (0-5); HEMATOCRIT 26.6 % (36.0-46.0); IMMATURE GRANULOCYTE (%) 1.1 % (0.0-0.7); IMMATURE GRANULOCYTE COUNT 0.1 K/uL; INSTRUMENT ABS NEUTROPHIL CT 8.1 K/uL; LYMPHOCYTE COUNT 0.4 K/uL (1.0-2.8); MCH 32.3 PG (29.0-34.0); MCHC 30.5 G/DL (30.0-36.0); MEAN PLAT.VOLUME 11.1 uM^3 (9.5-12.4); MONOCYTE (%) 7.6 % (3-12); MONOCYTE COUNT 0.7 K/uL (0-0.8); NEUTROPHIL (%) 86.7 % (45-76); NEUTROPHIL COUNT 8.1 K/uL (1.8-6.4); NRBC (%) 0.3 /100 WBC (0-0); PLATELET COUNT 77 K/uL (156-360); RBC DIS.WIDTH-CV 22.2 % (11.8-14.6); RBC DIS.WIDTH-SD 85.7 % (39-53); RED BLOOD COUNT 2.51 M/uL (3.80-5.20); WHITE BLOOD COUNT 9.3 K/uL (4.1-10.2)
[2017-04-01 06:07] LABS: ALKALINE PHOSPHATASE 225 IU/L (3-129); ANION GAP 29 MEQ/L (2-14); CHLORIDE 104 MEQ/L (99-109); GFR ESTIMATE (CALCULATED) > 59 mL/min/; POTASSIUM 4.1 MEQ/L (3.7-5.4); SAMPLE HEMOLYSIS CHECK 0; SAMPLE ICTERIC CHECK 2; SAMPLE LIPEMIA CHECK 0; SODIUM 141 MEQ/L (136-147); TOTAL BILIRUBIN 6.9 MG/DL (0.0-1.0); UREA NITROGEN (BUN) 7 mg/dL (9-23)
[2017-04-01 06:10] LABS: GLUCOSE 97 mg/dL (70-99)
[2017-04-01 07:30] VITALS: BP 130/70
[2017-04-01 13:16] LABS: ANION GAP 14 MEQ/L (2-14); CHLORIDE 101 MEQ/L (99-109); POTASSIUM 3.4 MEQ/L (3.7-5.4); SAMPLE HEMOLYSIS CHECK 0; SAMPLE ICTERIC CHECK 1; SAMPLE LIPEMIA CHECK 0; SODIUM 134 MEQ/L (136-147)
[2017-04-01 13:22] LABS: GFR ESTIMATE (CALCULATED) > 59 mL/min/; UREA NITROGEN (BUN) 6 mg/dL (9-23)
[2017-04-01 13:26] LABS: GLUCOSE 325 mg/dL (70-99)
[2017-04-01 18:03] VITALS: BP 127/73
[2017-04-01 21:20] VITALS: BP 117/55
[2017-04-01 23:43] VITALS: BP 115/58
[2017-04-02] VITALS (14 sets, daily range): BP systolic 83–117; BP diastolic 51–78
[2017-04-02 00:48] LABS: EOSINOPHIL (%) 0.5 % (0-5); HEMATOCRIT 22.7 % (36.0-46.0); IMMATURE GRANULOCYTE (%) 0.5 % (0.0-0.7); LYMPHOCYTE COUNT 1.3 K/uL (1.0-2.8); MEAN PLAT.VOLUME 11.5 uM^3 (9.5-12.4); MONOCYTE (%) 4.6 % (3-12); MONOCYTE COUNT 0.3 K/uL (0-0.8); NEUTROPHIL (%) 71.4 % (45-76); NRBC (%) 0.5 /100 WBC (0-0); PLATELET COUNT 74 K/uL (156-360); RBC DIS.WIDTH-CV 19.1 % (11.8-14.6); RED BLOOD COUNT 2.27 M/uL (3.80-5.20); WHITE BLOOD COUNT 5.7 K/uL (4.1-10.2)
[2017-04-02 00:50] LABS: CHLORIDE 100 mEq/L (99-109); SODIUM 135 mEq/L (136-147)
[2017-04-02 00:52] LABS: GLUCOSE 212 mg/dL (70-99)
[2017-04-02 00:53] LABS: ANION GAP 14 MEQ/L (2-14)
[2017-04-02 00:54] LABS: TOTAL BILIRUBIN 6.5 mg/dL (0.0-1.0)
[2017-04-02 00:56] LABS: GFR ESTIMATE (CALCULATED) > 59 mL/min/
[2017-04-02 00:56] LABS: POINT-OF-CARE METER ID UU13113831
[2017-04-02 00:57] LABS: UREA NITROGEN (BUN) 4 mg/dL (9-23)
[2017-04-02 01:00] LABS: ALKALINE PHOSPHATASE 225 IU/L (3-129); POTASSIUM 2.6 mEq/L (3.7-5.4)
[2017-04-02 01:23] LABS: INTER. NORMALIZED RATIO 1.2
[2017-04-02 01:26] LABS: PTT 30.9 SEC (25-37)
[2017-04-02 01:55] LABS: SAMPLE HEMOLYSIS CHECK 0; SAMPLE ICTERIC CHECK 2; SAMPLE LIPEMIA CHECK 0
[2017-04-02 01:56] LABS: AMYLASE 48 IU/L (1-118)
[2017-04-02 02:05] LABS: LIPASE 111 U/L (1.0-51.0)
[2017-04-02 03:37] LABS: D-DIMER LATEX NEGATIVE
[2017-04-02 04:17] LABS: SCHISTOCYTES NONE SEEN
[2017-04-02 05:48] LABS: POINT-OF-CARE METER ID UU14174216
[2017-04-02 05:54] LABS: ANION GAP 11 MEQ/L (2-14); CHLORIDE 104 MEQ/L (99-109); GFR ESTIMATE (CALCULATED) > 59 mL/min/; GLUCOSE 234 mg/dL (70-99); SAMPLE HEMOLYSIS CHECK 0; SAMPLE ICTERIC CHECK 1; SAMPLE LIPEMIA CHECK 0; SODIUM 139 MEQ/L (136-147); UREA NITROGEN (BUN) 3 mg/dL (9-23)
[2017-04-02 06:10] LABS: POTASSIUM 3.9 MEQ/L (3.7-5.4)
[2017-04-02 07:24] LABS: EOSINOPHIL (%) 1.3 % (0-5); EOSINOPHIL COUNT 0.1 K/uL (0-0.3); HEMATOCRIT 26.4 % (36.0-46.0); IMMATURE GRANULOCYTE (%) 0.6 % (0.0-0.7); INSTRUMENT ABS NEUTROPHIL CT 3.7 K/uL; LYMPHOCYTE COUNT 1.2 K/uL (1.0-2.8); MCH 33.2 PG (29.0-34.0); MCHC 33.3 G/DL (30.0-36.0); MCV 99.6 FL (83-99); MEAN PLAT.VOLUME 11.6 uM^3 (9.5-12.4); MONOCYTE COUNT 0.2 K/uL (0-0.8); NEUTROPHIL (%) 70.1 % (45-76); NEUTROPHIL COUNT 3.7 K/uL (1.8-6.4); NRBC (%) 0.4 /100 WBC (0-0); PLATELET COUNT 63 K/uL (156-360); RBC DIS.WIDTH-CV 18.9 % (11.8-14.6); RBC DIS.WIDTH-SD 68.8 % (39-53); RED BLOOD COUNT 2.65 M/uL (3.80-5.20); WHITE BLOOD COUNT 5.3 K/uL (4.1-10.2)
[2017-04-02 07:53] LABS: ALKALINE PHOSPHATASE 188 IU/L (3-129); ANION GAP 10 MEQ/L (2-14); CHLORIDE 102 MEQ/L (99-109); GFR ESTIMATE (CALCULATED) > 59 mL/min/; GLUCOSE 279 mg/dL (70-99); LIPASE 120 U/L (1.0-51.0); MAGNESIUM 2.5 mg/dl (1.3-2.7); POTASSIUM 3.5 MEQ/L (3.7-5.4); SAMPLE HEMOLYSIS CHECK 0; SAMPLE ICTERIC CHECK 1; SAMPLE LIPEMIA CHECK 0; SODIUM 137 MEQ/L (136-147); TOTAL BILIRUBIN 6.1 MG/DL (0.0-1.0); UREA NITROGEN (BUN) 3 mg/dL (9-23)
[2017-04-02 12:06] LABS: POINT-OF-CARE METER ID UU13113698
[2017-04-02 15:59] LABS: INTERNAL CONTROL VALID? YES
[2017-04-02 16:19] LABS: C DIFF TOXIN POSITIVE (NEGATIVE); PROBE CHECK PASS
[2017-04-02 18:11] LABS: POINT-OF-CARE METER ID UU13113698
[2017-04-02 19:52] LABS: HEMATOCRIT 30.6 % (36.0-46.0); MCV 93.9 FL (83-99)
[2017-04-03 00:14] LABS: POINT-OF-CARE METER ID UU14174216
[2017-04-03 03:33] VITALS: BP 119/78
[2017-04-03 05:28] LABS: HEMATOCRIT 32.4 % (36.0-46.0); MCH 31.3 PG (29.0-34.0); MCHC 33.3 G/DL (30.0-36.0); MCV 93.9 FL (83-99); MEAN PLAT.VOLUME 12.6 uM^3 (9.5-12.4); NRBC (%) 0.3 /100 WBC (0-0); PLATELET COUNT 55 K/uL (156-360); RBC DIS.WIDTH-SD 69.4 % (39-53); WHITE BLOOD COUNT 5.8 K/uL (4.1-10.2)
[2017-04-03 05:42] LABS: RED BLOOD COUNT 3.45 M/uL (3.80-5.20)
[2017-04-03 06:23] LABS: ALKALINE PHOSPHATASE 205 IU/L (3-129); AMYLASE 32 IU/L (1-118); ANION GAP 9 MEQ/L (2-14); CHLORIDE 106 MEQ/L (99-109); GFR ESTIMATE (CALCULATED) > 59 mL/min/; GLUCOSE 147 mg/dL (70-99); LIPASE 95 U/L (1.0-51.0); POTASSIUM 3.3 MEQ/L (3.7-5.4); SAMPLE HEMOLYSIS CHECK 0; SAMPLE ICTERIC CHECK 1; SAMPLE LIPEMIA CHECK 0; SODIUM 140 MEQ/L (136-147); TOTAL BILIRUBIN 5.9 MG/DL (0.0-1.0); UREA NITROGEN (BUN) 2 mg/dL (9-23)
[2017-04-03 07:42] LABS: POINT-OF-CARE METER ID UU14174216
[2017-04-03 07:44] LABS: Estimated Average Glucose 85 mg/dL (70-123); HEMOGLOBIN A1c (GLYCOHEMOGLOB) 4.6 % HGB (Below 5.7)
[2017-04-03 08:00] VITALS: BP 111/68
[2017-04-03 11:46] LABS: POINT-OF-CARE METER ID UU13113698
[2017-04-03 11:55] VITALS: BP 111/72
[2017-04-03 15:22] VITALS: BP 101/67
[2017-04-03 16:10] LABS: POINT-OF-CARE METER ID UU13113698
[2017-04-03 19:00] VITALS: BP 115/86
[2017-04-03 20:10] LABS: HEMATOCRIT 32.5 % (36.0-46.0); MCV 93.9 FL (83-99)
[2017-04-03 21:38] LABS: POINT-OF-CARE METER ID UU14174216
[2017-04-04] VITALS (8 sets, daily range): BP systolic 96–156; BP diastolic 68–90
[2017-04-04 08:13] LABS: POINT-OF-CARE METER ID UU14174216
[2017-04-04 09:18] LABS: HEMATOCRIT 36.3 % (36.0-46.0)
[2017-04-04 16:57] LABS: POINT-OF-CARE METER ID UU14174216
[2017-04-04 20:09] LABS: HEMATOCRIT 34.6 % (36.0-46.0); MCV 96.1 FL (83-99)
[2017-04-04 21:19] LABS: POINT-OF-CARE METER ID UU13113781
[2017-04-05 04:00] VITALS: BP 95/62
[2017-04-05 06:37] LABS: EOSINOPHIL (%) 1.9 % (0-5); EOSINOPHIL COUNT 0.1 K/uL (0-0.3); HEMATOCRIT 33.6 % (36.0-46.0); IMMATURE GRANULOCYTE (%) 0.9 % (0.0-0.7); IMMATURE GRANULOCYTE COUNT 0.1 K/uL; INSTRUMENT ABS NEUTROPHIL CT 3.9 K/uL; LYMPHOCYTE COUNT 0.8 K/uL (1.0-2.8); MCH 32.8 PG (29.0-34.0); MCHC 33.6 G/DL (30.0-36.0); MCV 97.7 FL (83-99); MONOCYTE COUNT 0.7 K/uL (0-0.8); NEUTROPHIL (%) 69.4 % (45-76); NEUTROPHIL COUNT 3.9 K/uL (1.8-6.4); NRBC (%) 0.5 /100 WBC (0-0); RBC DIS.WIDTH-CV 20.8 % (11.8-14.6); RBC DIS.WIDTH-SD 70.4 % (39-53); RED BLOOD COUNT 3.44 M/uL (3.80-5.20); WHITE BLOOD COUNT 5.7 K/uL (4.1-10.2)
[2017-04-05 06:54] LABS: PLATELET COUNT 76 K/uL (156-360)
[2017-04-05 07:02] LABS: ALKALINE PHOSPHATASE 212 IU/L (3-129); ANION GAP 9 MEQ/L (2-14); CHLORIDE 103 MEQ/L (99-109); GFR ESTIMATE (CALCULATED) > 59 mL/min/; POTASSIUM 3.3 MEQ/L (3.7-5.4); SAMPLE HEMOLYSIS CHECK 0; SAMPLE ICTERIC CHECK 2; SAMPLE LIPEMIA CHECK 0; SODIUM 141 MEQ/L (136-147); TOTAL BILIRUBIN 6.5 MG/DL (0.0-1.0); UREA NITROGEN (BUN) 6 mg/dL (9-23)
[2017-04-05 07:03] LABS: GLUCOSE 85 mg/dL (70-99)
[2017-04-05 08:01] LABS: POINT-OF-CARE METER ID UU14174216
[2017-04-05 11:26] LABS: POINT-OF-CARE METER ID UU13113698
[2017-04-05 12:00] VITALS: BP 98/60
[2017-04-05 15:25] VITALS: BP 121/81
[2017-04-05 16:45] LABS: POINT-OF-CARE METER ID UU14174216
[2017-04-05 19:38] VITALS: BP 97/63
[2017-04-05 19:49] LABS: HEMATOCRIT 35.1 % (36.0-46.0); MCV 98.6 FL (83-99)
[2017-04-05 21:06] LABS: POINT-OF-CARE METER ID UU14174216
[2017-04-05 22:19] VITALS: BP 120/77
[2017-04-05 23:08] LABS: ADD MIUA? YES; BILIRUBIN MODERATE; BLOOD SMALL; COLOR AMBER ((YELLOW)); GLUCOSE (STRIP) NEGATIVE; KETONES NEGATIVE; LEUKOCYTES TRACE; NITRITE NEGATIVE; PROTEIN (STRIP) NEGATIVE; SPECIFIC GRAVITY 1.019 (1.000-1.030)
[2017-04-05 23:12] LABS: BACTERIA NONE SEEN /HPF; EPITHELIAL CELLS RARE /HPF; MUCUS 1+ /LPF; RED BLOOD CELLS 0-5 /HPF (0-5); WHITE BLOOD CELLS 0-5 /HPF (0-5)
[2017-04-05 23:18] LABS: ICTOTEST POSITIVE
[2017-04-06 04:22] VITALS: BP 110/62
[2017-04-06 05:48] LABS: WHITE BLOOD COUNT 6.2 K/uL (4.1-10.2)
[2017-04-06 05:49] LABS: HEMATOCRIT 32.6 % (36.0-46.0); MCHC 33.4 G/DL (30.0-36.0); MCV 98.8 FL (83-99); MEAN PLAT.VOLUME 12.2 uM^3 (9.5-12.4); NRBC (%) 0.3 /100 WBC (0-0); RBC DIS.WIDTH-CV 20.8 % (11.8-14.6)
[2017-04-06 05:52] LABS: PLATELET COUNT 116 K/uL (156-360)
[2017-04-06 06:37] LABS: ALKALINE PHOSPHATASE 214 IU/L (3-129); ANION GAP 9 MEQ/L (2-14); CHLORIDE 104 MEQ/L (99-109); GFR ESTIMATE (CALCULATED) > 59 mL/min/; GLUCOSE 80 mg/dL (70-99); POTASSIUM 3.7 MEQ/L (3.7-5.4); SAMPLE HEMOLYSIS CHECK 0; SAMPLE ICTERIC CHECK 2; SAMPLE LIPEMIA CHECK 0; SODIUM 139 MEQ/L (136-147); TOTAL BILIRUBIN 7.1 MG/DL (0.0-1.0); UREA NITROGEN (BUN) 7 mg/dL (9-23)
[2017-04-06 06:40] LABS: MAGNESIUM 1.1 mg/dl (1.3-2.7)
[2017-04-06 08:28] LABS: POINT-OF-CARE METER ID UU13113698
[2017-04-06 09:28] VITALS: BP 118/80
[2017-04-06 12:47] VITALS: BP 95/69
[2017-04-06 13:03] LABS: POINT-OF-CARE METER ID UU14174216
[2017-04-06 16:58] LABS: POINT-OF-CARE METER ID UU13113698
[2017-04-06 19:55] VITALS: BP 112/73
[2017-04-06 21:17] LABS: POINT-OF-CARE METER ID UU13113781
[2017-04-07] VITALS: BP 125/78
[2017-04-07 04:34] VITALS: BP 116/68
[2017-04-07 05:20] LABS: HEMATOCRIT 31.2 % (36.0-46.0); MCH 32.3 PG (29.0-34.0); MCV 97.8 FL (83-99); MEAN PLAT.VOLUME 11.2 uM^3 (9.5-12.4); RBC DIS.WIDTH-CV 20.6 % (11.8-14.6); RBC DIS.WIDTH-SD 73.3 % (39-53); RED BLOOD COUNT 3.19 M/uL (3.80-5.20); WHITE BLOOD COUNT 6.3 K/uL (4.1-10.2)
[2017-04-07 05:28] LABS: PLATELET COUNT 152 K/uL (156-360)
[2017-04-07 05:37] LABS: INTER. NORMALIZED RATIO 1.5; PROTHROMBIN TIME 16.8 SEC (10.2-12.9)
[2017-04-07 05:59] LABS: ALKALINE PHOSPHATASE 213 IU/L (3-129); ANION GAP 9 MEQ/L (2-14); CHLORIDE 105 MEQ/L (99-109); GFR ESTIMATE (CALCULATED) > 59 mL/min/; GLUCOSE 65 mg/dL (70-99); POTASSIUM 4.2 MEQ/L (3.7-5.4); SAMPLE HEMOLYSIS CHECK 0; SAMPLE ICTERIC CHECK 2; SAMPLE LIPEMIA CHECK 0; SODIUM 140 MEQ/L (136-147); TOTAL BILIRUBIN 7.2 MG/DL (0.0-1.0); UREA NITROGEN (BUN) 7 mg/dL (9-23)
[2017-04-07 06:01] LABS: MAGNESIUM 1.5 mg/dl (1.3-2.7)
[2017-04-07 07:48] LABS: POINT-OF-CARE METER ID UU14174216
[2017-04-07 08:00] VITALS: BP 111/72
[2017-04-07 09:02] LABS: RESEND RESULTS RESEND RESULTS
[2017-04-07 11:10] LABS: POINT-OF-CARE METER ID UU14174216
[2017-04-07 16:00] VITALS: BP 110/70
[2017-04-07 16:54] LABS: POINT-OF-CARE METER ID UU13113698
[2017-04-07 20:04] VITALS: BP 116/72
[2017-04-07 22:12] LABS: POINT-OF-CARE METER ID UU14149397
[2017-04-07 23:44] VITALS: BP 116/78
[2017-04-08 06:42] LABS: INTER. NORMALIZED RATIO 1.5; PROTHROMBIN TIME 16.8 SEC (10.2-12.9)
[2017-04-08 06:59] LABS: ALKALINE PHOSPHATASE 227 IU/L (3-129); ANION GAP 7 MEQ/L (2-14); CHLORIDE 105 MEQ/L (99-109); GFR ESTIMATE (CALCULATED) > 59 mL/min/; GLUCOSE 76 mg/dL (70-99); POTASSIUM 4.5 MEQ/L (3.7-5.4); SAMPLE HEMOLYSIS CHECK 0; SAMPLE ICTERIC CHECK 2; SAMPLE LIPEMIA CHECK 0; SODIUM 139 MEQ/L (136-147); TOTAL BILIRUBIN 7.5 MG/DL (0.0-1.0); UREA NITROGEN (BUN) 4 mg/dL (9-23)
[2017-04-08 07:07] LABS: POINT-OF-CARE METER ID UU14149397
[2017-04-08 08:30] VITALS: BP 122/76
[2017-04-08 11:42] LABS: POINT-OF-CARE METER ID UU14149397
[2017-04-08 11:59] VITALS: BP 118/72
[2017-04-08 15:50] VITALS: BP 88/58
[2017-04-08 16:20] LABS: POINT-OF-CARE METER ID UU14208753
[2017-04-08 19:47] VITALS: BP 121/78
[2017-04-08 22:04] LABS: POINT-OF-CARE METER ID UU14117124
[2017-04-08 23:28] VITALS: BP 103/63
[2017-04-09 03:46] VITALS: BP 101/71
[2017-04-09 06:39] LABS: POINT-OF-CARE METER ID UU14117124
[2017-04-09 06:47] LABS: BASOPHIL COUNT 0.1 K/uL (0-0.1); EOSINOPHIL (%) 1.3 % (0-5); EOSINOPHIL COUNT 0.1 K/uL (0-0.3); HEMATOCRIT 32.8 % (36.0-46.0); IMMATURE GRANULOCYTE (%) 2.1 % (0.0-0.7); IMMATURE GRANULOCYTE COUNT 0.2 K/uL; LYMPHOCYTE COUNT 1.4 K/uL (1.0-2.8); MCH 33.4 PG (29.0-34.0); MCHC 33.2 G/DL (30.0-36.0); MCV 100.6 FL (83-99); MEAN PLAT.VOLUME 11.4 uM^3 (9.5-12.4); MONOCYTE COUNT 1.4 K/uL (0-0.8); NEUTROPHIL (%) 55.6 % (45-76); RBC DIS.WIDTH-CV 20.4 % (11.8-14.6); RED BLOOD COUNT 3.26 M/uL (3.80-5.20); WHITE BLOOD COUNT 7.2 K/uL (4.1-10.2)
[2017-04-09 06:59] LABS: PLATELET COUNT 223 K/uL (156-360)
[2017-04-09 07:20] LABS: ALKALINE PHOSPHATASE 217 IU/L (3-129); ANION GAP 8 MEQ/L (2-14); CHLORIDE 101 MEQ/L (99-109); GFR ESTIMATE (CALCULATED) > 59 mL/min/; GLUCOSE 70 mg/dL (70-99); POTASSIUM 4.7 MEQ/L (3.7-5.4); SAMPLE HEMOLYSIS CHECK 0; SAMPLE ICTERIC CHECK 2; SAMPLE LIPEMIA CHECK 0; SODIUM 135 MEQ/L (136-147); TOTAL BILIRUBIN 7.7 MG/DL (0.0-1.0); UREA NITROGEN (BUN) 6 mg/dL (9-23)
[2017-04-09 08:30] VITALS: BP 110/76
[2017-04-09 11:38] LABS: POINT-OF-CARE METER ID UU14117124
[2017-04-09 12:18] VITALS: BP 116/78
[2017-04-09 16:30] VITALS: BP 1122/76
[2017-04-09 17:06] LABS: POINT-OF-CARE METER ID UU14117124
[2017-04-09 21:06] VITALS: BP 91/60
[2017-04-09 21:17] LABS: POINT-OF-CARE METER ID UU14117124
[2017-04-09 23:30] VITALS: BP 100/67
[2017-04-10 04:22] VITALS: BP 126/70; BP 91/51
[2017-04-10 07:02] LABS: POINT-OF-CARE METER ID UU14149397
[2017-04-10 07:27] LABS: BASOPHIL COUNT 0.1 K/uL (0-0.1); EOSINOPHIL (%) 1.2 % (0-5); EOSINOPHIL COUNT 0.1 K/uL (0-0.3); HEMATOCRIT 32.2 % (36.0-46.0); IMMATURE GRANULOCYTE (%) 1.7 % (0.0-0.7); IMMATURE GRANULOCYTE COUNT 0.2 K/uL; LYMPHOCYTE COUNT 1.5 K/uL (1.0-2.8); MCH 32.8 PG (29.0-34.0); MCHC 32.3 G/DL (30.0-36.0); MCV 101.6 FL (83-99); MEAN PLAT.VOLUME 11.6 uM^3 (9.5-12.4); MONOCYTE (%) 15.4 % (3-12); MONOCYTE COUNT 1.4 K/uL (0-0.8); NEUTROPHIL (%) 64.5 % (45-76); PLATELET COUNT 250 K/uL (156-360); RBC DIS.WIDTH-CV 19.8 % (11.8-14.6); RBC DIS.WIDTH-SD 72.8 % (39-53); RED BLOOD COUNT 3.17 M/uL (3.80-5.20); WHITE BLOOD COUNT 9.3 K/uL (4.1-10.2)
[2017-04-10 07:51] LABS: ALKALINE PHOSPHATASE 198 IU/L (3-129); ANION GAP 6 MEQ/L (2-14); CHLORIDE 95 MEQ/L (99-109); GFR ESTIMATE (CALCULATED) > 59 mL/min/; GLUCOSE 79 mg/dL (70-99); POTASSIUM 4.8 MEQ/L (3.7-5.4); SAMPLE HEMOLYSIS CHECK 0; SAMPLE ICTERIC CHECK 2; SAMPLE LIPEMIA CHECK 0; SODIUM 132 MEQ/L (136-147); TOTAL BILIRUBIN 8.5 MG/DL (0.0-1.0); UREA NITROGEN (BUN) 4 mg/dL (9-23)
[2017-04-10 08:32] VITALS: BP 81/48
[2017-04-10 08:52] VITALS: BP 81/48
[2017-04-10 09:17] LABS: AMYLASE 32 IU/L (1-118); DIRECT BILIRUBIN 5.4 mg/dL (0.0-0.3); LIPASE 16 U/L (1.0-51.0)
[2017-04-10 17:01] VITALS: BP 98/58
[2017-04-10 17:13] LABS: POINT-OF-CARE METER ID UU14208753
[2017-04-10 19:40] VITALS: BP 95/62
[2017-04-10 21:23] LABS: POINT-OF-CARE METER ID UU14208753
[2017-04-10 23:38] VITALS: BP 103/57
[2017-04-11 04:06] VITALS: BP 87/54
[2017-04-11 07:05] LABS: POINT-OF-CARE METER ID UU14117124
[2017-04-11 07:09] LABS: BASOPHIL COUNT 0.2 K/uL (0-0.1); EOSINOPHIL (%) 0.9 % (0-5); EOSINOPHIL COUNT 0.1 K/uL (0-0.3); HEMATOCRIT 31.1 % (36.0-46.0); IMMATURE GRANULOCYTE (%) 1.4 % (0.0-0.7); IMMATURE GRANULOCYTE COUNT 0.2 K/uL; INSTRUMENT ABS NEUTROPHIL CT 9.2 K/uL; LYMPHOCYTE COUNT 1.7 K/uL (1.0-2.8); MCH 33.6 PG (29.0-34.0); MCHC 33.1 G/DL (30.0-36.0); MCV 101.3 FL (83-99); MEAN PLAT.VOLUME 11.6 uM^3 (9.5-12.4); MONOCYTE (%) 11.8 % (3-12); MONOCYTE COUNT 1.5 K/uL (0-0.8); NEUTROPHIL (%) 71.4 % (45-76); NEUTROPHIL COUNT 9.2 K/uL (1.8-6.4); PLATELET COUNT 276 K/uL (156-360); RBC DIS.WIDTH-CV 19.6 % (11.8-14.6); RED BLOOD COUNT 3.07 M/uL (3.80-5.20); WHITE BLOOD COUNT 12.8 K/uL (4.1-10.2)
[2017-04-11 07:34] LABS: ALKALINE PHOSPHATASE 205 IU/L (3-129); ANION GAP 8 MEQ/L (2-14); CHLORIDE 95 MEQ/L (99-109); DIRECT BILIRUBIN 5.4 mg/dL (0.0-0.3); GFR ESTIMATE (CALCULATED) > 59 mL/min/; GLUCOSE 69 mg/dL (70-99); POTASSIUM 4.6 MEQ/L (3.7-5.4); SAMPLE HEMOLYSIS CHECK 0; SAMPLE ICTERIC CHECK 2; SAMPLE LIPEMIA CHECK 0; SODIUM 131 MEQ/L (136-147); TOTAL BILIRUBIN 9.1 MG/DL (0.0-1.0); UREA NITROGEN (BUN) 6 mg/dL (9-23)
[2017-04-11 07:51] VITALS: BP 101/61
[2017-04-11 11:47] LABS: POINT-OF-CARE METER ID UU14117124
[2017-04-11 11:48] VITALS: BP 99/54
[2017-04-11 15:25] VITALS: BP 108/71
[2017-04-11 16:06] LABS: POINT-OF-CARE METER ID UU14208753
[2017-04-11 19:45] VITALS: BP 89/55
[2017-04-11 21:34] LABS: POINT-OF-CARE METER ID UU14117124
[2017-04-11 23:46] VITALS: BP 96/57
[2017-04-12 04:20] VITALS: BP 97/57
[2017-04-12 06:15] LABS: POINT-OF-CARE METER ID UU14188577
[2017-04-12 06:59] LABS: BASOPHIL COUNT 0.2 K/uL (0-0.1); EOSINOPHIL (%) 0.8 % (0-5); EOSINOPHIL COUNT 0.1 K/uL (0-0.3); HEMATOCRIT 30.9 % (36.0-46.0); IMMATURE GRANULOCYTE (%) 1.2 % (0.0-0.7); IMMATURE GRANULOCYTE COUNT 0.2 K/uL; LYMPHOCYTE COUNT 1.6 K/uL (1.0-2.8); MCH 33.4 PG (29.0-34.0); MCV 101.3 FL (83-99); MONOCYTE (%) 10.8 % (3-12); MONOCYTE COUNT 1.5 K/uL (0-0.8); NEUTROPHIL (%) 73.8 % (45-76); PLATELET COUNT 300 K/uL (156-360); RBC DIS.WIDTH-CV 19.5 % (11.8-14.6); RED BLOOD COUNT 3.05 M/uL (3.80-5.20); WHITE BLOOD COUNT 13.5 K/uL (4.1-10.2)
[2017-04-12 07:22] LABS: ALKALINE PHOSPHATASE 211 IU/L (3-129); ANION GAP 8 MEQ/L (2-14); CHLORIDE 97 MEQ/L (99-109); GFR ESTIMATE (CALCULATED) > 59 mL/min/; POTASSIUM 4.5 MEQ/L (3.7-5.4); SAMPLE HEMOLYSIS CHECK 0; SAMPLE ICTERIC CHECK 2; SAMPLE LIPEMIA CHECK 0; SODIUM 134 MEQ/L (136-147); TOTAL BILIRUBIN 8.3 MG/DL (0.0-1.0); UREA NITROGEN (BUN) 7 mg/dL (9-23)
[2017-04-12 07:24] LABS: GLUCOSE 93 mg/dL (70-99)
[2017-04-12 09:13] VITALS: BP 97/59
[2017-04-12 11:18] LABS: POINT-OF-CARE METER ID UU14188577
[2017-04-12 11:47] VITALS: BP 98/54
[2017-04-12 13:53] LABS: ADD MIUA? YES; BILIRUBIN MODERATE; BLOOD NEGATIVE; COLOR AMBER ((YELLOW)); GLUCOSE (STRIP) NEGATIVE; KETONES NEGATIVE; LEUKOCYTES NEGATIVE; NITRITE NEGATIVE; PROTEIN (STRIP) NEGATIVE; SPECIFIC GRAVITY 1.015 (1.000-1.030)
[2017-04-12 14:05] LABS: BACTERIA RARE /HPF; EPITHELIAL CELLS 1+ /HPF; MUCUS 1+ /LPF; RED BLOOD CELLS 0-5 /HPF (0-5); WHITE BLOOD CELLS 0-5 /HPF (0-5)
[2017-04-12 14:09] VITALS: BP 99/60
[2017-04-12 14:16] LABS: ICTOTEST POSITIVE
[2017-04-12 15:51] VITALS: BP 97/54
[2017-04-12 16:21] LABS: POINT-OF-CARE METER ID UU14117124
[2017-04-12 20:17] VITALS: BP 92/60
[2017-04-12 21:37] LABS: POINT-OF-CARE METER ID UU14117124; POINT-OF-CARE USER ID AHSUCEG
[2017-04-13 00:10] VITALS: BP 99/63
[2017-04-13 04:49] VITALS: BP 90/52
[2017-04-13 06:23] LABS: POINT-OF-CARE METER ID UU14149397
[2017-04-13 07:09] LABS: HEMATOCRIT 30.2 % (36.0-46.0); MCH 33.9 PG (29.0-34.0); MCHC 33.4 G/DL (30.0-36.0); MCV 101.3 FL (83-99); RBC DIS.WIDTH-CV 19.3 % (11.8-14.6); RBC DIS.WIDTH-SD 71.9 % (39-53); RED BLOOD COUNT 2.98 M/uL (3.80-5.20); WHITE BLOOD COUNT 12.3 K/uL (4.1-10.2)
[2017-04-13 07:32] LABS: ALKALINE PHOSPHATASE 190 IU/L (3-129); ANION GAP 8 MEQ/L (2-14); CHLORIDE 96 MEQ/L (99-109); GFR ESTIMATE (CALCULATED) > 59 mL/min/; GLUCOSE 73 mg/dL (70-99); POTASSIUM 4.3 MEQ/L (3.7-5.4); SAMPLE HEMOLYSIS CHECK 0; SAMPLE ICTERIC CHECK 2; SAMPLE LIPEMIA CHECK 0; SODIUM 132 MEQ/L (136-147); TOTAL BILIRUBIN 7.7 MG/DL (0.0-1.0); UREA NITROGEN (BUN) 6 mg/dL (9-23)
[2017-04-13 07:39] LABS: MEAN PLAT.VOLUME 11.5 uM^3 (9.5-12.4); PLAT.SUFFICIENCY ADEQUATE; PLATELET COUNT 294 K/uL (156-360)
[2017-04-13] MEDS ORDERED: VANCOCIN HCL125 MG PO (07:56)
[2017-04-13] MEDS ORDERED: Thiamine,Vitamin B1 PO (07:56)
[2017-04-13] MEDS ORDERED: VIVITROL380 MG/3.4 IM (07:56)
[2017-04-13] MEDS ORDERED: TRAMADOL HCL50 MG PO (07:56)
[2017-04-13] MEDS ORDERED: XIFAXAN200 MG PO (07:56)
[2017-04-13] MEDS ORDERED: FOLIC ACID1 MG PO (07:56)
[2017-04-13 08:30] VITALS: BP 100/50
[2017-04-13 11:39] LABS: POINT-OF-CARE METER ID UU14149397
[2017-04-13 12:20] VITALS: BP 75/40
[2017-04-13 16:46] VITALS: BP 96/60
[2017-04-13 16:51] LABS: POINT-OF-CARE METER ID UU14208753
== END 2017-04-13 17:35 | disposition home or self-care (01) | DRG 371 ==
LOC: EME 13:21 → EDOF 20:06 → ENRESERV 20:19 → 5WEST 21:50 → 4EAST 04-01 07:38 → 5WEST 04-01 07:38 → ENRESERV 04-01 07:39 → CANRESERV 04-01 07:39 → ENRESERV 04-02 01:42 → 5WEST 04-02 01:42 → ENRESERV 04-02 02:20 → 4EAST 04-02 02:24 → ENRESERV 04-07 16:55 → 3EAST 04-07 19:19
PROVIDERS: Emergency Medicine; Hospitalist; Internal Medicine; Nurse Practitioner Adult Health; Pediatrics; Physician Assistant; Physician Assistant Medical
PROC: 30230N1 Transfusion of Nonautologous Red Blood Cells into Peripheral Vein, Open Approach (ICD-10-PCS; principal; 2017-04-02)
DX: A04.71 Enterocolitis due to Clostridium difficile, recurrent (principal); K85.20 Alcohol induced acute pancreatitis without necrosis or infection; F10.230 Alcohol dependence with withdrawal, uncomplicated; E87.2 Acidosis; D68.9 Coagulation defect, unspecified; E87.6 Hypokalemia; D69.6 Thrombocytopenia, unspecified; Y90.8 Blood alcohol level of 240 mg/100 ml or more; G40.909 Epilepsy, unspecified, not intractable, without status epilepticus; F17.200 Nicotine dependence, unspecified, uncomplicated; E86.0 Dehydration; F31.9 Bipolar disorder, unspecified; E11.65 Type 2 diabetes mellitus with hyperglycemia; F43.10 Post-traumatic stress disorder, unspecified; I10 Essential (primary) hypertension; K21.9 Gastro-esophageal reflux disease without esophagitis; F10.220 Alcohol dependence with intoxication, uncomplicated; K70.11 Alcoholic hepatitis with ascites; K29.80 Duodenitis without bleeding; D64.9 Anemia, unspecified; K72.00 Acute and subacute hepatic failure without coma; E11.649 Type 2 diabetes mellitus with hypoglycemia without coma; E83.42 Hypomagnesemia; K74.60 Unspecified cirrhosis of liver
CPT/HCPCS: 36600; 74020; 74176; 74177; 76705; 78226; 80048; 80048 91; 80053; 80069; 80076; 81003; 82140; 82150; 82248; 82272; 82803; 82948; 83036; 83605; 83690; 83735; 84100; 84702; 85014; 85018; 85025; 85025 91; 85027; 85378; 85384; 85610; 85730; 86850; 86900; 86901; 86920; 87040; 87086; 87493; 99281; 99285; A9537; C9113; G0378; G0480; J0696; J1630; J1815; J1885; J2060; J2270; J2354; J2405; J3411; J3475; J3480; J7030; J7040; J7042; J7050; P9016; Q0177; S0028; S0030

== ENCOUNTER → 2017-05-18 | Outpatient (CLI) | payer OTHER ==
[~2017-05-18] VITALS: Ht 149.9 cm; Wt 43.1 kg
[~2017-05-18] MED LIST changes: +DICYCLOMINE HCL10 MG PO; +TRAMADOL HCL50 MG PO; +VIVITROL380 MG/3.4 IM; +XIFAXAN200 MG PO
[2017-05-18 12:07] LABS: INTER. NORMALIZED RATIO 1.1; PROTHROMBIN TIME 12.8 SEC (10.2-12.9)
[2017-05-18 12:10] LABS: PTT 35.2 SEC (25-37)
== END | disposition home or self-care (01) ==
LOC: AMB 10:24
PROVIDERS: Internal Medicine Gastroenterology
PROC: 0DB68ZX Excision of Stomach, Via Natural or Artificial Opening Endoscopic, Diagnostic (ICD-10-PCS; principal; 2017-05-18)
DX: K29.70 Gastritis, unspecified, without bleeding (principal); K70.30 Alcoholic cirrhosis of liver without ascites; F10.20 Alcohol dependence, uncomplicated; K21.9 Gastro-esophageal reflux disease without esophagitis; D64.9 Anemia, unspecified; Z86.19 Personal history of other infectious and parasitic diseases; E78.5 Hyperlipidemia, unspecified; F17.200 Nicotine dependence, unspecified, uncomplicated; R56.9 Unspecified convulsions; E55.9 Vitamin D deficiency, unspecified; Z79.82 Long term (current) use of aspirin
CPT/HCPCS: 85610; 85730; 88305; 88342 TC

== ENCOUNTER 2017-07-27 09:52 | Inpatient (IN) | payer OTHER ==
[~2017-07-27] VITALS: Ht 149.9 cm; Wt 53.3 kg
[2017-07-27 10:43] LABS: HEMATOCRIT 33.3 % (36.0-46.0); MCH 34.2 PG (29.0-34.0); MCV 94.9 FL (83-99); PLATELET COUNT 99 K/uL (156-360); RBC DIS.WIDTH-CV 15.4 % (11.8-14.6); RBC DIS.WIDTH-SD 52.5 % (39-53); RED BLOOD COUNT 3.51 M/uL (3.80-5.20); WHITE BLOOD COUNT 12.6 K/uL (4.1-10.2)
[2017-07-27 10:54] LABS: ALBUMIN 4.8 g/dL (3.2-4.8); CHLORIDE 98 mEq/L (99-109); POTASSIUM 3.6 mEq/L (3.7-5.4); SODIUM 137 mEq/L (136-147)
[2017-07-27 10:57] LABS: GLUCOSE 97 mg/dL (70-99); TOTAL PROTEIN 8.2 g/dL (6.4-8.3)
[2017-07-27 10:59] LABS: TOTAL BILIRUBIN 1.3 mg/dL (0.0-1.0)
[2017-07-27 11:00] LABS: ALKALINE PHOSPHATASE 238 IU/L (3-129); CREATININE 0.8 mg/dL (0.6-1.3); GFR ESTIMATE (CALCULATED) > 59 mL/min/
[2017-07-27 11:01] LABS: UREA NITROGEN (BUN) 12 mg/dL (9-23)
[2017-07-27 11:02] LABS: AST (GOT) 87 IU/L (2-34)
[2017-07-27 11:03] LABS: ALT (GPT) 37 IU/L (3-49)
[2017-07-27 11:04] LABS: LIPASE 19 U/L (1.0-51.0)
[2017-07-27] MEDS ORDERED: VITAMIN B-1100 MG PO (16:57)
[2017-07-27] MEDS ORDERED: ATARAX,VISTARIL25 MG PO (16:57)
[2017-07-27] MEDS ORDERED: PROTONIX40 MG PO (16:58)
[2017-07-27 20:22] LABS: APPEARANCE SL.HAZY ((CLEAR)); BILIRUBIN NEGATIVE; BLOOD MODERATE; COLOR YELLOW ((YELLOW)); GLUCOSE (STRIP) NEGATIVE; KETONES 80; LEUKOCYTES NEGATIVE; NITRITE POSITIVE; PROTEIN (STRIP) 100; SPECIFIC GRAVITY 1.018 (1.000-1.030); UROBILINOGEN 0.2 MG/DL (0.2-1.0)
[2017-07-27 20:31] LABS: BACTERIA 1+ /HPF; EPITHELIAL CELLS 1+ /HPF; MUCUS TRACE /LPF; RED BLOOD CELLS 0-5 /HPF (0-5); UCUL ADDED? YES
[2017-07-27 21:30] VITALS: BP 119/72
[2017-07-27 23:38] VITALS: BP 119/71
[2017-07-28 03:52] VITALS: BP 106/63
[2017-07-28 04:17] LABS: C DIFF TOXIN POSITIVE (NEGATIVE)
[2017-07-28 07:04] LABS: HEMATOCRIT 27.9 % (36.0-46.0); MCHC 34.8 G/DL (30.0-36.0); MCV 97.9 FL (83-99); RBC DIS.WIDTH-CV 15.6 % (11.8-14.6); RBC DIS.WIDTH-SD 55.9 % (39-53); RED BLOOD COUNT 2.85 M/uL (3.80-5.20); WHITE BLOOD COUNT 7.4 K/uL (4.1-10.2)
[2017-07-28 07:06] LABS: HEMOGLOBIN 9.7 G/DL (11.9-15.5)
[2017-07-28 07:22] LABS: CHLORIDE 103 MEQ/L (99-109); CREATININE 0.6 MG/DL (0.6-1.3); GFR ESTIMATE (CALCULATED) > 59 mL/min/; GLUCOSE 85 mg/dL (70-99); SODIUM 138 MEQ/L (136-147); UREA NITROGEN (BUN) 5 mg/dL (9-23)
[2017-07-28 07:30] LABS: PLAT.SUFFICIENCY DECREASED; PLATELET COUNT 62 K/uL (156-360); POTASSIUM 2.8 MEQ/L (3.7-5.4)
[2017-07-28 07:46] VITALS: BP 122/18
[2017-07-28 11:11] VITALS: BP 118/70
[2017-07-28 16:00] VITALS: BP 122/76
[2017-07-28 20:08] VITALS: BP 117/80
[2017-07-29 00:22] VITALS: BP 127/75
[2017-07-29 03:15] VITALS: BP 114/78
[2017-07-29 07:10] LABS: BASOPHIL (%) 1.2 % (0-1); BASOPHIL COUNT 0.1 K/uL (0-0.1); EOSINOPHIL (%) 1.4 % (0-5); EOSINOPHIL COUNT 0.1 K/uL (0-0.3); HEMATOCRIT 30.8 % (36.0-46.0); HEMOGLOBIN 10.4 G/DL (11.9-15.5); IMMATURE GRANULOCYTE (%) 0.7 % (0.0-0.7); LYMPHOCYTE (%) 39.5 % (15-42); LYMPHOCYTE COUNT 1.7 K/uL (1.0-2.8); MCH 32.9 PG (29.0-34.0); MCHC 33.8 G/DL (30.0-36.0); MCV 97.5 FL (83-99); MONOCYTE (%) 17.2 % (3-12); MONOCYTE COUNT 0.7 K/uL (0-0.8); NEUTROPHIL COUNT 1.7 K/uL (1.8-6.4); PLATELET COUNT 65 K/uL (156-360); RBC DIS.WIDTH-CV 15.7 % (11.8-14.6); RBC DIS.WIDTH-SD 55.9 % (39-53); RED BLOOD COUNT 3.16 M/uL (3.80-5.20); WHITE BLOOD COUNT 4.2 K/uL (4.1-10.2)
[2017-07-29 07:36] LABS: ALBUMIN 3.5 G/DL (3.2-4.8); ALKALINE PHOSPHATASE 151 IU/L (3-129); ALT (GPT) 21 IU/L (3-49); AST (GOT) 43 IU/L (2-34); CHLORIDE 105 MEQ/L (99-109); CREATININE 0.4 MG/DL (0.6-1.3); GFR ESTIMATE (CALCULATED) > 59 mL/min/; GLUCOSE 88 mg/dL (70-99); POTASSIUM 3.2 MEQ/L (3.7-5.4); SODIUM 140 MEQ/L (136-147); TOTAL BILIRUBIN 0.7 MG/DL (0.0-1.0); TOTAL PROTEIN 5.7 G/DL (6.4-8.3); UREA NITROGEN (BUN) 2 mg/dL (9-23)
[2017-07-29 08:02] VITALS: BP 128/78
[2017-07-29 11:25] VITALS: BP 124/72
[2017-07-29 16:20] VITALS: BP 120/78
[2017-07-29 19:53] VITALS: BP 113/71
[2017-07-30] VITALS: BP 114/76
[2017-07-30 05:47] LABS: BASOPHIL (%) 1.1 % (0-1); BASOPHIL COUNT 0.1 K/uL (0-0.1); EOSINOPHIL (%) 1.7 % (0-5); EOSINOPHIL COUNT 0.1 K/uL (0-0.3); HEMATOCRIT 31.5 % (36.0-46.0); HEMOGLOBIN 10.9 G/DL (11.9-15.5); IMMATURE GRANULOCYTE (%) 1.1 % (0.0-0.7); LYMPHOCYTE (%) 35.1 % (15-42); LYMPHOCYTE COUNT 1.6 K/uL (1.0-2.8); MCH 33.9 PG (29.0-34.0); MCHC 34.6 G/DL (30.0-36.0); MCV 97.8 FL (83-99); MONOCYTE (%) 16.1 % (3-12); MONOCYTE COUNT 0.8 K/uL (0-0.8); NEUTROPHIL (%) 44.9 % (45-76); NEUTROPHIL COUNT 2.1 K/uL (1.8-6.4); RBC DIS.WIDTH-CV 15.8 % (11.8-14.6); RBC DIS.WIDTH-SD 55.8 % (39-53); RED BLOOD COUNT 3.22 M/uL (3.80-5.20); WHITE BLOOD COUNT 4.7 K/uL (4.1-10.2)
[2017-07-30 05:51] LABS: PLATELET COUNT 87 K/uL (156-360)
[2017-07-30 06:10] LABS: ALBUMIN 3.9 G/DL (3.2-4.8); ALKALINE PHOSPHATASE 154 IU/L (3-129); ALT (GPT) 23 IU/L (3-49); AST (GOT) 49 IU/L (2-34); CHLORIDE 104 MEQ/L (99-109); CREATININE 0.4 MG/DL (0.6-1.3); GFR ESTIMATE (CALCULATED) > 59 mL/min/; GLUCOSE 84 mg/dL (70-99); MAGNESIUM 1.2 mg/dl (1.3-2.7); POTASSIUM 3.8 MEQ/L (3.7-5.4); SODIUM 141 MEQ/L (136-147); TOTAL BILIRUBIN 0.6 MG/DL (0.0-1.0); TOTAL PROTEIN 6.5 G/DL (6.4-8.3); UREA NITROGEN (BUN) 2 mg/dL (9-23)
[2017-07-30 08:47] VITALS: BP 116/74
[2017-07-30 16:34] VITALS: BP 126/78
[2017-07-30 23:14] VITALS: BP 110/77
[2017-07-31 04:47] LABS: HEMATOCRIT 29.6 % (36.0-46.0); HEMOGLOBIN 10.4 G/DL (11.9-15.5); MCHC 35.1 G/DL (30.0-36.0); MCV 96.7 FL (83-99); PLATELET COUNT 113 K/uL (156-360); RBC DIS.WIDTH-CV 15.8 % (11.8-14.6); RBC DIS.WIDTH-SD 55.2 % (39-53); RED BLOOD COUNT 3.06 M/uL (3.80-5.20); WHITE BLOOD COUNT 4.3 K/uL (4.1-10.2)
[2017-07-31 05:04] LABS: CHLORIDE 103 mEq/L (99-109); SODIUM 140 mEq/L (136-147)
[2017-07-31 05:05] LABS: MAGNESIUM 1.5 mg/dL (1.3-2.7)
[2017-07-31 05:06] LABS: GLUCOSE 80 mg/dL (70-99)
[2017-07-31 05:10] LABS: CREATININE 0.5 mg/dL (0.6-1.3); GFR ESTIMATE (CALCULATED) > 59 mL/min/
[2017-07-31 05:11] LABS: UREA NITROGEN (BUN) 3 mg/dL (9-23)
[2017-07-31 05:37] LABS: BASOPHIL (%) 0.7 % (0-1); EOSINOPHIL (%) 1.6 % (0-5); EOSINOPHIL COUNT 0.1 K/uL (0-0.3); IMMATURE GRANULOCYTE (%) 0.9 % (0.0-0.7); LYMPHOCYTE (%) 37.9 % (15-42); LYMPHOCYTE COUNT 1.6 K/uL (1.0-2.8); MONOCYTE (%) 17.3 % (3-12); MONOCYTE COUNT 0.8 K/uL (0-0.8); NEUTROPHIL (%) 41.6 % (45-76); NEUTROPHIL COUNT 1.8 K/uL (1.8-6.4)
[2017-07-31 08:57] VITALS: BP 104/68
[2017-07-31 12:21] VITALS: BP 98/56
[2017-07-31 16:05] VITALS: BP 94/58
[2017-07-31 20:00] VITALS: BP 119/75
[2017-08-01] VITALS: BP 125/77
[2017-08-01 03:59] VITALS: BP 110/70
[2017-08-01 06:12] LABS: CHLORIDE 102 MEQ/L (99-109); CREATININE 0.5 MG/DL (0.6-1.3); GFR ESTIMATE (CALCULATED) > 59 mL/min/; GLUCOSE 85 mg/dL (70-99); POTASSIUM 3.6 MEQ/L (3.7-5.4); SODIUM 141 MEQ/L (136-147); UREA NITROGEN (BUN) 8 mg/dL (9-23)
[2017-08-01 08:11] VITALS: BP 108/52
[2017-08-01 15:53] VITALS: BP 92/55
[2017-08-02 00:38] VITALS: BP 100/60
[2017-08-02 07:41] LABS: CHLORIDE 100 MEQ/L (99-109); CREATININE 0.5 MG/DL (0.6-1.3); GFR ESTIMATE (CALCULATED) > 59 mL/min/; GLUCOSE 89 mg/dL (70-99); POTASSIUM 3.9 MEQ/L (3.7-5.4); SODIUM 139 MEQ/L (136-147); UREA NITROGEN (BUN) 9 mg/dL (9-23)
[2017-08-02 08:06] LABS: MAGNESIUM 1.3 mg/dl (1.3-2.7)
[2017-08-02 08:57] VITALS: BP 100/60
[2017-08-02 15:41] VITALS: BP 103/61
[2017-08-02] MEDS ORDERED: BACTRIM,SEPT1 TABLET PO (16:37)
[2017-08-02] MEDS ORDERED: VANCOMYCIN HCL125 MG PO (16:39)
[2017-08-02] MEDS ORDERED: ZOFRAN4 MG PO (16:45)
== END 2017-08-02 18:40 | disposition home or self-care (01) | DRG 372 ==
LOC: EME 09:52 → 3EAST 16:44 → EDOF 16:44 → ENRESERV 16:45 → 3EAST 21:26 → ENPENDDIS 08-02 16:42 → 3EAST 08-02 18:40
PROVIDERS: Emergency Medicine; Hospitalist; Internal Medicine
DX: A04.71 Enterocolitis due to Clostridium difficile, recurrent (principal); E83.42 Hypomagnesemia; N10 Acute pyelonephritis; I10 Essential (primary) hypertension; G40.909 Epilepsy, unspecified, not intractable, without status epilepticus; E87.6 Hypokalemia; F17.200 Nicotine dependence, unspecified, uncomplicated; F10.239 Alcohol dependence with withdrawal, unspecified; F31.9 Bipolar disorder, unspecified; E86.0 Dehydration; R30.0 Dysuria; K74.60 Unspecified cirrhosis of liver; E11.9 Type 2 diabetes mellitus without complications; K21.9 Gastro-esophageal reflux disease without esophagitis; D64.9 Anemia, unspecified; D69.6 Thrombocytopenia, unspecified; E87.2 Acidosis; I25.2 Old myocardial infarction
CPT/HCPCS: 74176; 80048; 80053; 81003; 83690; 83735; 84132 91; 85025; 85027; 87040; 87077; 87086; 87186; 87493; 99281; 99285; J0696; J0744; J1170; J1650; J1956; J2270; J2405; J2765; J3411; J3475; J3480; J7030; J7040; S0030

== ENCOUNTER 2017-09-22 23:35 | Inpatient (IN) | payer OTHER ==
[~2017-09-22] VITALS: Ht 149.9 cm; Wt 43.0 kg
[~2017-09-22 23:35] MED LIST changes: +ATARAX,VISTARIL25 MG PO; +PROTONIX40 MG PO; +VANCOMYCIN HCL125 MG PO; +ZOLOFT50 MG PO
[2017-09-23 00:24] LABS: HEMOGLOBIN 14.2 G/DL (11.9-15.5); MCH 34.6 PG (29.0-34.0); MCHC 36.4 G/DL (30.0-36.0); MCV 95.1 FL (83-99); PLATELET COUNT 93 K/uL (156-360); RBC DIS.WIDTH-CV 15.7 % (11.8-14.6); RBC DIS.WIDTH-SD 55.2 % (39-53); WHITE BLOOD COUNT 23.3 K/uL (4.1-10.2)
[2017-09-23 00:35] LABS: ALBUMIN 4.8 g/dL (3.2-4.8); CHLORIDE 98 mEq/L (99-109); POTASSIUM 3.3 mEq/L (3.7-5.4); SODIUM 144 mEq/L (136-147)
[2017-09-23 00:37] LABS: GLUCOSE 79 mg/dL (70-99); TOTAL PROTEIN 8.6 g/dL (6.4-8.3)
[2017-09-23 00:39] LABS: TOTAL BILIRUBIN 0.6 mg/dL (0.0-1.0)
[2017-09-23 00:41] LABS: ALKALINE PHOSPHATASE 289 IU/L (3-129); CREATININE 0.6 mg/dL (0.6-1.3); GFR ESTIMATE (CALCULATED) > 59 mL/min/
[2017-09-23 00:42] LABS: UREA NITROGEN (BUN) 9 mg/dL (9-23)
[2017-09-23 00:44] LABS: ALT (GPT) 39 IU/L (3-49)
[2017-09-23 00:49] LABS: QUANTITATIVE HCG < 4.0 MIU/ML
[2017-09-23 01:15] LABS: AST (GOT) 151 IU/L (2-34)
[2017-09-23 02:40] LABS: APPEARANCE SL.HAZY ((CLEAR)); BILIRUBIN NEGATIVE; BLOOD MODERATE; COLOR YELLOW ((YELLOW)); GLUCOSE (STRIP) NEGATIVE; KETONES 80; LEUKOCYTES NEGATIVE; NITRITE NEGATIVE; PROTEIN (STRIP) >=500; SPECIFIC GRAVITY 1.016 (1.000-1.030); UROBILINOGEN 0.2 MG/DL (0.2-1.0)
[2017-09-23 02:46] LABS: LIPASE 24 U/L (1.0-51.0)
[2017-09-23 02:46] LABS: BACTERIA NONE SEEN /HPF; EPITHELIAL CELLS 1+ /HPF; MUCUS TRACE /LPF; RED BLOOD CELLS 0-5 /HPF (0-5); UCUL ADDED? NO; WHITE BLOOD CELLS 0-5 /HPF (0-5)
[2017-09-23 05:37] VITALS: BP 110/65
[2017-09-23 07:08] LABS: STOOL OCCULT BLD 1ST SPECIMEN POSITIVE
[2017-09-23 07:25] LABS: C DIFF TOXIN POSITIVE (NEGATIVE)
[2017-09-23 08:10] VITALS: BP 109/66
[2017-09-23 12:49] LABS: BASOPHIL (%) 0.3 % (0-1); EOSINOPHIL (%) 0 % (0-5); HEMATOCRIT 29.7 % (36.0-46.0); IMMATURE GRANULOCYTE (%) 0.3 % (0.0-0.7); LYMPHOCYTE (%) 2.9 % (15-42); LYMPHOCYTE COUNT 0.3 K/uL (1.0-2.8); MCH 34.6 PG (29.0-34.0); MCHC 35.7 G/DL (30.0-36.0); MCV 97.1 FL (83-99); MONOCYTE (%) 8.1 % (3-12); MONOCYTE COUNT 0.9 K/uL (0-0.8); NEUTROPHIL (%) 88.4 % (45-76); NEUTROPHIL COUNT 10.2 K/uL (1.8-6.4); RBC DIS.WIDTH-CV 15.8 % (11.8-14.6); RBC DIS.WIDTH-SD 56.1 % (39-53); WHITE BLOOD COUNT 11.6 K/uL (4.1-10.2)
[2017-09-23 12:57] LABS: HEMOGLOBIN 10.6 G/DL (11.9-15.5); RED BLOOD COUNT 3.06 M/uL (3.80-5.20)
[2017-09-23 13:00] LABS: CHLORIDE 95 MEQ/L (99-109); CREATININE 0.5 MG/DL (0.6-1.3); GFR ESTIMATE (CALCULATED) > 59 mL/min/; UREA NITROGEN (BUN) 4 mg/dL (9-23)
[2017-09-23 13:03] LABS: GLUCOSE 254 mg/dL (70-99); SODIUM 131 MEQ/L (136-147)
[2017-09-23 14:36] LABS: IMM.PLATELET FRACTION 3.4 (1-7); PLAT.SUFFICIENCY DECREASED
[2017-09-23 14:38] LABS: PLATELET COUNT 48 K/uL (156-360)
[2017-09-23 16:41] VITALS: BP 113/71
[2017-09-23 23:59] VITALS: BP 101/57
[2017-09-24 06:23] LABS: BASOPHIL (%) 0.5 % (0-1); EOSINOPHIL (%) 0.5 % (0-5); HEMATOCRIT 30.5 % (36.0-46.0); HEMOGLOBIN 10.8 G/DL (11.9-15.5); IMMATURE GRANULOCYTE (%) 0.5 % (0.0-0.7); LYMPHOCYTE (%) 15.3 % (15-42); LYMPHOCYTE COUNT 1.3 K/uL (1.0-2.8); MCHC 35.4 G/DL (30.0-36.0); MCV 95.9 FL (83-99); MONOCYTE (%) 7.6 % (3-12); MONOCYTE COUNT 0.6 K/uL (0-0.8); NEUTROPHIL (%) 75.6 % (45-76); NEUTROPHIL COUNT 6.4 K/uL (1.8-6.4); RBC DIS.WIDTH-CV 15.1 % (11.8-14.6); RBC DIS.WIDTH-SD 52.7 % (39-53); RED BLOOD COUNT 3.18 M/uL (3.80-5.20); WHITE BLOOD COUNT 8.5 K/uL (4.1-10.2)
[2017-09-24 06:47] LABS: ALBUMIN 3.4 G/DL (3.2-4.8); ALKALINE PHOSPHATASE 178 IU/L (3-129); ALT (GPT) 26 IU/L (3-49); AST (GOT) 111 IU/L (2-34); CHLORIDE 102 MEQ/L (99-109); CREATININE 0.3 MG/DL (0.6-1.3); GFR ESTIMATE (CALCULATED) > 59 mL/min/; MAGNESIUM 1.4 mg/dl (1.3-2.7); POTASSIUM 2.8 MEQ/L (3.7-5.4); SODIUM 137 MEQ/L (136-147); TOTAL BILIRUBIN 1.3 MG/DL (0.0-1.0); TOTAL PROTEIN 5.6 G/DL (6.4-8.3); UREA NITROGEN (BUN) 3 mg/dL (9-23)
[2017-09-24 06:48] LABS: GLUCOSE 76 mg/dL (70-99)
[2017-09-24 07:13] LABS: IMM.PLATELET FRACTION 5.7 (1-7); PLAT.SUFFICIENCY VERY DECREASED; PLATELET COUNT 41 K/uL (156-360)
[2017-09-24 07:34] VITALS: BP 116/77
[2017-09-24 15:51] LABS: CHLORIDE 106 MEQ/L (99-109); CREATININE 0.3 MG/DL (0.6-1.3); GFR ESTIMATE (CALCULATED) > 59 mL/min/; POTASSIUM 3.2 MEQ/L (3.7-5.4); SODIUM 138 MEQ/L (136-147); UREA NITROGEN (BUN) 3 mg/dL (9-23)
[2017-09-24 15:56] LABS: GLUCOSE 135 mg/dL (70-99)
[2017-09-24 16:15] VITALS: BP 113/78
[2017-09-25 00:05] VITALS: BP 122/54
[2017-09-25 06:59] LABS: BASOPHIL (%) 0.7 % (0-1); EOSINOPHIL COUNT 0.1 K/uL (0-0.3); HEMATOCRIT 25.9 % (36.0-46.0); HEMOGLOBIN 9.2 G/DL (11.9-15.5); IMMATURE GRANULOCYTE (%) 0.7 % (0.0-0.7); LYMPHOCYTE (%) 31.5 % (15-42); LYMPHOCYTE COUNT 1.3 K/uL (1.0-2.8); MCH 34.2 PG (29.0-34.0); MCHC 35.5 G/DL (30.0-36.0); MCV 96.3 FL (83-99); MONOCYTE COUNT 0.4 K/uL (0-0.8); NEUTROPHIL (%) 55.1 % (45-76); NEUTROPHIL COUNT 2.3 K/uL (1.8-6.4); RBC DIS.WIDTH-CV 15.1 % (11.8-14.6); RBC DIS.WIDTH-SD 53.5 % (39-53); RED BLOOD COUNT 2.69 M/uL (3.80-5.20); WHITE BLOOD COUNT 4.1 K/uL (4.1-10.2)
[2017-09-25 07:09] LABS: CHLORIDE 106 MEQ/L (99-109); CREATININE 0.3 MG/DL (0.6-1.3); GFR ESTIMATE (CALCULATED) > 59 mL/min/; POTASSIUM 2.8 MEQ/L (3.7-5.4); SODIUM 138 MEQ/L (136-147); UREA NITROGEN (BUN) 2 mg/dL (9-23)
[2017-09-25 07:11] LABS: GLUCOSE 96 mg/dL (70-99)
[2017-09-25 07:17] LABS: ANISOCYTOSIS 2+; IMM.PLATELET FRACTION 8.5 (1-7); MACROCYTES 2+; PLAT.SUFFICIENCY VERY DECREASED; PLATELET CLUMPS PRESENT - PLATELET COUNTS APPEARS DECREASED; TARGET CELLS 1+
[2017-09-25 07:25] LABS: PLATELET COUNT UNABLE TO REPORT K/uL (156-360)
[2017-09-25 08:18] VITALS: BP 129/82
[2017-09-25 14:52] LABS: CHLORIDE 107 MEQ/L (99-109); CREATININE 0.3 MG/DL (0.6-1.3); GFR ESTIMATE (CALCULATED) > 59 mL/min/; GLUCOSE 139 mg/dL (70-99); POTASSIUM 3.1 MEQ/L (3.7-5.4); SODIUM 137 MEQ/L (136-147); UREA NITROGEN (BUN) 2 mg/dL (9-23)
[2017-09-25 16:17] VITALS: BP 114/79
[2017-09-25 23:31] VITALS: BP 116/78
[2017-09-26 06:19] LABS: HEMATOCRIT 26.7 % (36.0-46.0); HEMOGLOBIN 9.3 G/DL (11.9-15.5); IMM.RETIC FRACTION 11.7 % (3-19); MCH 33.6 PG (29.0-34.0); MCHC 34.8 G/DL (30.0-36.0); MCV 96.4 FL (83-99); RBC DIS.WIDTH-CV 15.3 % (11.8-14.6); RBC DIS.WIDTH-SD 54.4 % (39-53); RED BLOOD COUNT 2.77 M/uL (3.80-5.20); RETIC HGB EQUIVALENT 34.1 (28-36); RETICULOCYTE COUNT 0.7 % (0.5-1.8); WHITE BLOOD COUNT 3.3 K/uL (4.1-10.2)
[2017-09-26 06:30] LABS: INTER. NORMALIZED RATIO 1.2
[2017-09-26 06:32] LABS: PTT 30.6 SEC (25-37)
[2017-09-26 06:48] LABS: CHLORIDE 107 MEQ/L (99-109); CREATININE 0.3 MG/DL (0.6-1.3); GFR ESTIMATE (CALCULATED) > 59 mL/min/; LACTATE DEHYDROGENASE 150 IU/L (20-246); MAGNESIUM 1.3 mg/dl (1.3-2.7); POTASSIUM 3.4 MEQ/L (3.7-5.4); SODIUM 136 MEQ/L (136-147); UREA NITROGEN (BUN) 4 mg/dL (9-23)
[2017-09-26 06:51] LABS: GLUCOSE 92 mg/dL (70-99)
[2017-09-26 07:15] LABS: BASOPHIL (%) 1.2 % (0-1); EOSINOPHIL (%) 2.1 % (0-5); EOSINOPHIL COUNT 0.1 K/uL (0-0.3); HEMATOLOGY COMMENT 1 SMEAR COMPATIBLE; IMM.PLATELET FRACTION 11.1 (1-7); IMMATURE GRANULOCYTE (%) 1.2 % (0.0-0.7); LYMPHOCYTE (%) 37.8 % (15-42); LYMPHOCYTE COUNT 1.3 K/uL (1.0-2.8); MONOCYTE (%) 14.1 % (3-12); MONOCYTE COUNT 0.5 K/uL (0-0.8); NEUTROPHIL (%) 43.6 % (45-76); NEUTROPHIL COUNT 1.5 K/uL (1.8-6.4); PLAT.SUFFICIENCY DECREASED
[2017-09-26 07:19] LABS: PLATELET COUNT 60 K/uL (156-360)
[2017-09-26 08:01] VITALS: BP 128/82
[2017-09-26] MEDS ORDERED: BUSPAR10 MG PO (09:54)
[2017-09-26] MEDS ORDERED: MAGNESIUM250 MG PO (09:54)
[2017-09-26 16:20] VITALS: BP 130/87
[2017-09-27 00:01] VITALS: BP 125/78
[2017-09-27 07:44] VITALS: BP 134/70
[2017-09-27 09:06] LABS: HEMATOCRIT 27.3 % (36.0-46.0); HEMOGLOBIN 9.5 G/DL (11.9-15.5); MCH 34.1 PG (29.0-34.0); MCHC 34.8 G/DL (30.0-36.0); MCV 97.8 FL (83-99); RBC DIS.WIDTH-CV 16.2 % (11.8-14.6); RBC DIS.WIDTH-SD 57.7 % (39-53); RED BLOOD COUNT 2.79 M/uL (3.80-5.20); WHITE BLOOD COUNT 4.2 K/uL (4.1-10.2)
[2017-09-27 09:07] LABS: PLATELET COUNT 86 K/uL (156-360)
[2017-09-27 09:34] LABS: CHLORIDE 106 MEQ/L (99-109); CREATININE 0.3 MG/DL (0.6-1.3); GFR ESTIMATE (CALCULATED) > 59 mL/min/; GLUCOSE 92 mg/dL (70-99); POTASSIUM 3.7 MEQ/L (3.7-5.4); SODIUM 136 MEQ/L (136-147); UREA NITROGEN (BUN) 4 mg/dL (9-23)
[2017-09-27 15:58] VITALS: BP 122/78
[2017-09-28 01:00] VITALS: BP 133/90
[2017-09-28 06:49] LABS: HEMATOCRIT 25.8 % (36.0-46.0); HEMOGLOBIN 9.1 G/DL (11.9-15.5); MCH 34.7 PG (29.0-34.0); MCHC 35.3 G/DL (30.0-36.0); MCV 98.5 FL (83-99); PLATELET COUNT 142 K/uL (156-360); RBC DIS.WIDTH-CV 16.7 % (11.8-14.6); RBC DIS.WIDTH-SD 59.3 % (39-53); RED BLOOD COUNT 2.62 M/uL (3.80-5.20); WHITE BLOOD COUNT 5.3 K/uL (4.1-10.2)
[2017-09-28 07:13] LABS: CHLORIDE 107 MEQ/L (99-109); CREATININE 0.4 MG/DL (0.6-1.3); GFR ESTIMATE (CALCULATED) > 59 mL/min/; GLUCOSE 80 mg/dL (70-99); POTASSIUM 3.3 MEQ/L (3.7-5.4); SODIUM 139 MEQ/L (136-147); UREA NITROGEN (BUN) 4 mg/dL (9-23)
[2017-09-28 07:51] VITALS: BP 127/77
[2017-09-28 08:34] LABS: PHOSPHORUS 2.2 mg/dL (2.5-4.9)
[2017-09-28 08:38] LABS: MAGNESIUM 1.1 mg/dl (1.3-2.7)
[2017-09-28] MEDS ORDERED: VANCOMYCIN HCL125 MG PO (09:15)
[2017-09-28] MEDS ORDERED: K-DUR20 MEQ PO (09:16)
== END 2017-09-28 11:28 | disposition home or self-care (01) | DRG 372 ==
LOC: EME 23:35 → EDOF 09-23 04:01 → CANRESERV 09-23 04:03 → ENRESERV 09-23 04:03 → 5SOUTH 09-23 05:13 → ENRESERV 09-23 05:15 → CANRESERV 09-23 05:15 → 5SOUTH 09-23 15:17
PROVIDERS: Emergency Medicine; Hospitalist; Internal Medicine; Physician Assistant
DX: A04.71 Enterocolitis due to Clostridium difficile, recurrent (principal); D61.818 Other pancytopenia; E87.2 Acidosis; E86.0 Dehydration; E87.6 Hypokalemia; F10.239 Alcohol dependence with withdrawal, unspecified; K70.30 Alcoholic cirrhosis of liver without ascites; I10 Essential (primary) hypertension; F31.9 Bipolar disorder, unspecified; F12.90 Cannabis use, unspecified, uncomplicated; F17.210 Nicotine dependence, cigarettes, uncomplicated; Z79.82 Long term (current) use of aspirin
CPT/HCPCS: 74177; 80048; 80048 91; 80053; 81003; 82272; 83615; 83690; 83735; 84100; 84702; 85025; 85027; 85046; 85610; 85730; 87177; 87329; 87493; 87506; 99281; 99285; J0696; J1650; J2060; J2405; J2765; J3010; J3411; J3475; J7030; S0028; S0030

== ENCOUNTER 2017-10-10 15:17 | Inpatient (IN) | payer OTHER ==
[~2017-10-10] VITALS: Ht 149.9 cm; Wt 43.0 kg
[~2017-10-10 15:17] MED LIST changes: +BUSPAR10 MG PO; +K-DUR20 MEQ PO; +MAGNESIUM250 MG PO; -VITAMIN D-3 401 EACH PO; +VITAMIN D31000 UNI2 PO; -ZOLOFT50 MG PO
[2017-10-10 15:50] LABS: BASOPHIL (%) 1.7 % (0-1); BASOPHIL COUNT 0.1 K/uL (0-0.1); EOSINOPHIL (%) 0.7 % (0-5); EOSINOPHIL COUNT 0.1 K/uL (0-0.3); HEMATOCRIT 32.7 % (36.0-46.0); HEMOGLOBIN 11.8 G/DL (11.9-15.5); IMMATURE GRANULOCYTE (%) 0.5 % (0.0-0.7); LYMPHOCYTE (%) 35.2 % (15-42); LYMPHOCYTE COUNT 2.9 K/uL (1.0-2.8); MCH 34.5 PG (29.0-34.0); MCHC 36.1 G/DL (30.0-36.0); MCV 95.6 FL (83-99); MONOCYTE (%) 11.3 % (3-12); MONOCYTE COUNT 0.9 K/uL (0-0.8); NEUTROPHIL (%) 50.6 % (45-76); NEUTROPHIL COUNT 4.2 K/uL (1.8-6.4); PLATELET COUNT 354 K/uL (156-360); RBC DIS.WIDTH-CV 15.2 % (11.8-14.6); RBC DIS.WIDTH-SD 52.9 % (39-53); RED BLOOD COUNT 3.42 M/uL (3.80-5.20); WHITE BLOOD COUNT 8.3 K/uL (4.1-10.2)
[2017-10-10 15:57] LABS: ALBUMIN 4.6 g/dL (3.2-4.8); CHLORIDE 109 mEq/L (99-109); POTASSIUM 4.1 mEq/L (3.7-5.4); SODIUM 144 mEq/L (136-147)
[2017-10-10 16:00] LABS: GLUCOSE 86 mg/dL (70-99); TOTAL PROTEIN 7.5 g/dL (6.4-8.3)
[2017-10-10 16:01] LABS: TOTAL BILIRUBIN 0.3 mg/dL (0.0-1.0)
[2017-10-10 16:03] LABS: ALKALINE PHOSPHATASE 247 IU/L (3-129); CREATININE 0.7 mg/dL (0.6-1.3); GFR ESTIMATE (CALCULATED) > 59 mL/min/; SERUM ETHYL ALCOHOL 351 mg/dL
[2017-10-10 16:04] LABS: UREA NITROGEN (BUN) 9 mg/dL (9-23)
[2017-10-10 16:05] LABS: AST (GOT) 89 IU/L (2-34)
[2017-10-10 16:06] LABS: ALT (GPT) 29 IU/L (3-49)
[2017-10-10 18:11] LABS: LIPASE 19 U/L (1.0-51.0)
[2017-10-10 19:40] LABS: MAGNESIUM 1.8 mg/dL (1.3-2.7)
[2017-10-10 19:42] LABS: HEMATOCRIT 30.3 % (36.0-46.0); HEMOGLOBIN 10.8 G/DL (11.9-15.5); MCH 34.2 PG (29.0-34.0); MCHC 35.6 G/DL (30.0-36.0); MCV 95.9 FL (83-99); PLATELET COUNT 274 K/uL (156-360); RBC DIS.WIDTH-SD 52.8 % (39-53); RED BLOOD COUNT 3.16 M/uL (3.80-5.20); WHITE BLOOD COUNT 5.8 K/uL (4.1-10.2)
[2017-10-10] MEDS ORDERED: PROTONIX40 MG PO (19:48)
[2017-10-10] MEDS ORDERED: K-DUR20 MEQ PO (19:53)
[2017-10-10] MEDS ORDERED: B-COMPLEX-VITA1 EACH PO (19:54)
[2017-10-10 20:30] VITALS: BP 110/73
[2017-10-10 21:06] LABS: C DIFF TOXIN NEGATIVE (NEGATIVE)
[2017-10-11] VITALS: BP 93/55
[2017-10-11 02:16] LABS: APPEARANCE SL.HAZY ((CLEAR)); BILIRUBIN NEGATIVE; BLOOD NEGATIVE; COLOR YELLOW ((YELLOW)); GLUCOSE (STRIP) NEGATIVE; KETONES NEGATIVE; LEUKOCYTES NEGATIVE; NITRITE NEGATIVE; PROTEIN (STRIP) NEGATIVE; SPECIFIC GRAVITY 1.043 (1.000-1.030); UROBILINOGEN 0.2 MG/DL (0.2-1.0)
[2017-10-11 02:21] LABS: BACTERIA NONE SEEN /HPF; EPITHELIAL CELLS 1+ /HPF; HYALINE CASTS 0-5 /LPF; MUCUS TRACE /LPF; RED BLOOD CELLS 0-5 /HPF (0-5); UCUL ADDED? NO; WHITE BLOOD CELLS 0-5 /HPF (0-5)
[2017-10-11 06:36] LABS: ALBUMIN 3.5 G/DL (3.2-4.8); ALKALINE PHOSPHATASE 150 IU/L (3-129); ALT (GPT) 19 IU/L (3-49); AST (GOT) 61 IU/L (2-34); CHLORIDE 114 MEQ/L (99-109); CREATININE 0.5 MG/DL (0.6-1.3); GFR ESTIMATE (CALCULATED) > 59 mL/min/; GLUCOSE 84 mg/dL (70-99); POTASSIUM 3.7 MEQ/L (3.7-5.4); SODIUM 143 MEQ/L (136-147); TOTAL BILIRUBIN 0.5 MG/DL (0.0-1.0); TOTAL PROTEIN 5.2 G/DL (6.4-8.3); UREA NITROGEN (BUN) 6 mg/dL (9-23)
[2017-10-11 08:15] VITALS: BP 96/54
[2017-10-11 11:36] VITALS: BP 98/54
[2017-10-11 13:40] LABS: HEMATOCRIT 27.3 % (36.0-46.0); HEMOGLOBIN 9.1 G/DL (11.9-15.5); MCH 33.3 PG (29.0-34.0); MCHC 33.3 G/DL (30.0-36.0); PLATELET COUNT 213 K/uL (156-360); RBC DIS.WIDTH-CV 15.1 % (11.8-14.6); RBC DIS.WIDTH-SD 55.6 % (39-53); RED BLOOD COUNT 2.73 M/uL (3.80-5.20); WHITE BLOOD COUNT 3.9 K/uL (4.1-10.2)
[2017-10-11 15:31] VITALS: BP 105/65
[2017-10-11 19:17] VITALS: BP 114/64
[2017-10-11 23:31] VITALS: BP 116/71
[2017-10-12 03:35] VITALS: BP 112/64
[2017-10-12 05:39] LABS: HEMATOCRIT 25.2 % (36.0-46.0); HEMOGLOBIN 8.7 G/DL (11.9-15.5); MCH 33.6 PG (29.0-34.0); MCHC 34.5 G/DL (30.0-36.0); MCV 97.3 FL (83-99); PLATELET COUNT 190 K/uL (156-360); RBC DIS.WIDTH-CV 14.6 % (11.8-14.6); RBC DIS.WIDTH-SD 51.7 % (39-53); RED BLOOD COUNT 2.59 M/uL (3.80-5.20); WHITE BLOOD COUNT 3.6 K/uL (4.1-10.2)
[2017-10-12 08:12] VITALS: BP 103/68
[2017-10-12 12:13] VITALS: BP 112/67
[2017-10-12 14:31] LABS: HEMATOCRIT 29.2 % (36.0-46.0); HEMOGLOBIN 10.1 G/DL (11.9-15.5); MCH 33.8 PG (29.0-34.0); MCHC 34.6 G/DL (30.0-36.0); MCV 97.7 FL (83-99); RBC DIS.WIDTH-CV 14.5 % (11.8-14.6); RBC DIS.WIDTH-SD 52.1 % (39-53); RED BLOOD COUNT 2.99 M/uL (3.80-5.20); WHITE BLOOD COUNT 5.4 K/uL (4.1-10.2)
[2017-10-12 15:09] LABS: PLATELET COUNT 224 K/uL (156-360)
[2017-10-12 15:10] LABS: PLAT.SUFFICIENCY ADEQUATE
[2017-10-12 16:26] VITALS: BP 114/72
[2017-10-12 19:40] VITALS: BP 116/74
[2017-10-13 00:17] VITALS: BP 113/68
[2017-10-13 03:50] VITALS: BP 116/64
[2017-10-13 07:35] VITALS: BP 128/75
[2017-10-13 11:56] VITALS: BP 107/61
[2017-10-13 16:14] VITALS: BP 122/74
[2017-10-13 20:00] VITALS: BP 130/79
[2017-10-14] VITALS: BP 111/74
[2017-10-14 04:00] VITALS: BP 118/75
[2017-10-14 07:49] VITALS: BP 101/59
[2017-10-14] MEDS ORDERED: VANCOMYCIN HCL125 MG PO (09:58)
[2017-10-14] MEDS ORDERED: OXAYDO5 MG PO (11:24)
== END 2017-10-14 12:14 | disposition home or self-care (01) | DRG 372 ==
LOC: EME 15:17 → 5SOUTH 18:56 → EDOF 18:56 → ENRESERV 18:59 → 5SOUTH 20:07
PROVIDERS: Emergency Medicine; Hospitalist; Internal Medicine Gastroenterology; Nurse Practitioner Adult Health
DX: A04.71 Enterocolitis due to Clostridium difficile, recurrent (principal); F10.239 Alcohol dependence with withdrawal, unspecified; F10.229 Alcohol dependence with intoxication, unspecified; E86.0 Dehydration; E87.2 Acidosis; E11.9 Type 2 diabetes mellitus without complications; F31.9 Bipolar disorder, unspecified; F12.90 Cannabis use, unspecified, uncomplicated; F17.200 Nicotine dependence, unspecified, uncomplicated; G40.909 Epilepsy, unspecified, not intractable, without status epilepticus; Y90.8 Blood alcohol level of 240 mg/100 ml or more; K74.60 Unspecified cirrhosis of liver
CPT/HCPCS: 74177; 80053; 81003; 83605; 83690; 83735; 85025; 85027; 87177; 87329; 87493; 99281; 99285; C9113; G0480; J1170; J2060; J2405; J3010; J3411; J3475; J7030; Q0177; S0030

== ENCOUNTER 2017-11-25 06:27 | Inpatient (IN) | payer OTHER ==
[~2017-11-25] VITALS: Ht 149.9 cm; Wt 46.8 kg
[~2017-11-25 06:27] MED LIST changes: +B-COMPLEX-VITA1 EACH PO; +OXAYDO5 MG PO
[2017-11-25 07:16] LABS: HEMATOCRIT 32.8 % (36.0-46.0); HEMOGLOBIN 11.3 G/DL (11.9-15.5); MCH 33.2 PG (29.0-34.0); MCHC 34.5 G/DL (30.0-36.0); MCV 96.5 FL (83-99); PLATELET COUNT 161 K/uL (156-360); RBC DIS.WIDTH-CV 15.7 % (11.8-14.6); RBC DIS.WIDTH-SD 55.2 % (39-53); WHITE BLOOD COUNT 13.3 K/uL (4.1-10.2)
[2017-11-25 07:45] LABS: ALBUMIN 5.3 G/DL (3.2-4.8); CHLORIDE 92 MEQ/L (99-109); POTASSIUM 3.3 MEQ/L (3.7-5.4); SODIUM 137 MEQ/L (136-147); TOTAL BILIRUBIN 1.1 MG/DL (0.0-1.0)
[2017-11-25 07:51] LABS: ALKALINE PHOSPHATASE 236 IU/L (3-129); ALT (GPT) 31 IU/L (3-49); AST (GOT) 97 IU/L (2-34); CREATININE 0.8 MG/DL (0.6-1.3); GFR ESTIMATE (CALCULATED) > 59 mL/min/; GLUCOSE 114 mg/dL (70-99); LIPASE 17 U/L (1.0-51.0); TOTAL PROTEIN 8.3 G/DL (6.4-8.3); UREA NITROGEN (BUN) 15 mg/dL (9-23)
[2017-11-25 07:55] LABS: QUANTITATIVE HCG < 4.0 MIU/ML
[2017-11-25 10:37] LABS: BICARBONATE 20.6 mEq/L (22-26); CARBOXY HGB 2.1 % (0-5); METHEMOGLOBIN 1.2 % (0-1.5); O2 SATURATION (CALCULATED) 99.1 % (95-99); PCO2 31 mm Hg (35-45); PO2 94 mm Hg (80-100); pH 7.43 (7.35-7.45)
[2017-11-25 10:38] LABS: BASE EXCESS -3.1 mEq/L (-3 to +3); COMMENTS - BLOOD GASES C+; DEVICE RA; SITE RR; TOTAL RESP RATE 16 resp/min
[2017-11-25] MEDS ORDERED: PANTOPRAZOLE SO40 MG PO (11:04)
[2017-11-25] MEDS ORDERED: PROZAC20 MG PO (11:05)
[2017-11-25] MEDS ORDERED: NICOTINE PATCH1 EAC2 TD (11:09)
[2017-11-25 13:10] LABS: MAGNESIUM 1.5 mg/dl (1.3-2.7); SERUM ETHYL ALCOHOL < 10 mg/dL
[2017-11-25 14:15] LABS: APPEARANCE CLEAR ((CLEAR)); BILIRUBIN NEGATIVE; BLOOD SMALL; COLOR YELLOW ((YELLOW)); GLUCOSE (STRIP) NEGATIVE; KETONES 80; LEUKOCYTES NEGATIVE; NITRITE NEGATIVE; PROTEIN (STRIP) 30; SPECIFIC GRAVITY 1.058 (1.000-1.030); UROBILINOGEN 0.2 MG/DL (0.2-1.0)
[2017-11-25 14:17] LABS: BACTERIA NONE SEEN /HPF; EPITHELIAL CELLS RARE /HPF; MUCUS TRACE /LPF; RED BLOOD CELLS 0-5 /HPF (0-5); WHITE BLOOD CELLS 0-5 /HPF (0-5)
[2017-11-25 14:38] LABS: BENZODIAZEPINES, URINE SCREEN Negative (200 ng/mL)
[2017-11-25 15:22] LABS: C DIFF TOXIN NEGATIVE (NEGATIVE)
[2017-11-25 18:28] VITALS: BP 134/68
[2017-11-25 19:00] VITALS: BP 134/68
[2017-11-25 23:00] VITALS: BP 114/74
[2017-11-26 04:00] VITALS: BP 114/78
[2017-11-26 06:29] LABS: HEMATOCRIT 26.3 % (36.0-46.0); HEMOGLOBIN 8.7 G/DL (11.9-15.5); MCH 32.1 PG (29.0-34.0); MCHC 33.1 G/DL (30.0-36.0); RBC DIS.WIDTH-CV 15.9 % (11.8-14.6); RBC DIS.WIDTH-SD 56.3 % (39-53); RED BLOOD COUNT 2.71 M/uL (3.80-5.20); WHITE BLOOD COUNT 6.5 K/uL (4.1-10.2)
[2017-11-26 07:25] LABS: PLAT.SUFFICIENCY DECREASED
[2017-11-26 07:30] LABS: PLATELET COUNT 106 K/uL (156-360)
[2017-11-26 07:35] LABS: INTER. NORMALIZED RATIO 1.1
[2017-11-26 07:37] LABS: PTT 26.6 SEC (25-37)
[2017-11-26 08:05] VITALS: BP 125/83
[2017-11-26 08:33] LABS: CREATININE 0.4 MG/DL (0.6-1.3); GFR ESTIMATE (CALCULATED) > 59 mL/min/; MAGNESIUM 1.3 mg/dl (1.3-2.7); PHOSPHORUS 1.3 mg/dL (2.5-4.9); POTASSIUM 2.9 MEQ/L (3.7-5.4); SODIUM 138 MEQ/L (136-147); UREA NITROGEN (BUN) 6 mg/dL (9-23)
[2017-11-26 08:39] LABS: CHLORIDE 104 MEQ/L (99-109); GLUCOSE 72 mg/dL (70-99)
[2017-11-26 12:52] VITALS: BP 131/84
[2017-11-26 16:01] VITALS: BP 129/77
[2017-11-26 19:47] VITALS: BP 119/77
[2017-11-26 23:45] VITALS: BP 144/73
[2017-11-27 04:04] VITALS: BP 107/67
[2017-11-27 05:01] LABS: HEMATOCRIT 26.2 % (36.0-46.0); HEMOGLOBIN 8.7 G/DL (11.9-15.5); MCH 31.9 PG (29.0-34.0); MCHC 33.2 G/DL (30.0-36.0); PLATELET COUNT 93 K/uL (156-360); RBC DIS.WIDTH-CV 15.8 % (11.8-14.6); RBC DIS.WIDTH-SD 55.5 % (39-53); RED BLOOD COUNT 2.73 M/uL (3.80-5.20); WHITE BLOOD COUNT 3.8 K/uL (4.1-10.2)
[2017-11-27 05:56] LABS: ALBUMIN 3.4 G/DL (3.2-4.8); ALT (GPT) 19 IU/L (3-49); AST (GOT) 54 IU/L (2-34); CHLORIDE 103 MEQ/L (99-109); CREATININE 0.3 MG/DL (0.6-1.3); GFR ESTIMATE (CALCULATED) > 59 mL/min/; GLUCOSE 76 mg/dL (70-99); MAGNESIUM 1.2 mg/dl (1.3-2.7); PHOSPHORUS 1.4 mg/dL (2.5-4.9); POTASSIUM 2.5 MEQ/L (3.7-5.4); SODIUM 140 MEQ/L (136-147); UREA NITROGEN (BUN) 2 mg/dL (9-23)
[2017-11-27 05:58] LABS: ALKALINE PHOSPHATASE 150 IU/L (3-129); TOTAL BILIRUBIN 0.6 MG/DL (0.0-1.0); TOTAL PROTEIN 5.4 G/DL (6.4-8.3)
[2017-11-27 07:46] VITALS: BP 133/85
[2017-11-27 12:03] VITALS: BP 138/83
[2017-11-27 16:16] VITALS: BP 136/88
[2017-11-27 19:18] VITALS: BP 121/79
[2017-11-27 23:49] VITALS: BP 124/80
[2017-11-28 05:08] VITALS: BP 108/71
[2017-11-28 07:43] VITALS: BP 127/88
[2017-11-28 09:13] LABS: HEMOGLOBIN 10.1 G/DL (11.9-15.5); MCH 32.4 PG (29.0-34.0); MCHC 33.7 G/DL (30.0-36.0); MCV 96.2 FL (83-99); PLATELET COUNT 103 K/uL (156-360); RBC DIS.WIDTH-CV 15.7 % (11.8-14.6); RBC DIS.WIDTH-SD 54.4 % (39-53); RED BLOOD COUNT 3.12 M/uL (3.80-5.20); WHITE BLOOD COUNT 4.2 K/uL (4.1-10.2)
[2017-11-28 09:44] LABS: CHLORIDE 100 MEQ/L (99-109); CREATININE 0.3 MG/DL (0.6-1.3); GFR ESTIMATE (CALCULATED) > 59 mL/min/; GLUCOSE 85 mg/dL (70-99); POTASSIUM 2.9 MEQ/L (3.7-5.4); SODIUM 140 MEQ/L (136-147)
[2017-11-28 09:45] LABS: UREA NITROGEN (BUN) < 2 mg/dL (9-23)
[2017-11-28 12:15] VITALS: BP 123/77
[2017-11-28 16:24] VITALS: BP 121/85
[2017-11-28 19:20] VITALS: BP 133/88
[2017-11-29 00:40] VITALS: BP 110/57
[2017-11-29 03:55] VITALS: BP 134/87
[2017-11-29 05:50] LABS: C-REACTIVE PROTEIN 9.8 MG/L (0-10)
[2017-11-29 08:44] LABS: CHLORIDE 106 MEQ/L (99-109); CREATININE 0.3 MG/DL (0.6-1.3); GFR ESTIMATE (CALCULATED) > 59 mL/min/; GLUCOSE 89 mg/dL (70-99); POTASSIUM 3.4 MEQ/L (3.7-5.4); SODIUM 142 MEQ/L (136-147); UREA NITROGEN (BUN) < 2 mg/dL (9-23)
[2017-11-29 09:15] VITALS: BP 134/91
[2017-11-29 11:35] VITALS: BP 121/80
[2017-11-29 16:17] VITALS: BP 126/81
[2017-11-29 20:11] VITALS: BP 154/99
[2017-11-30] VITALS (7 sets, daily range): BP systolic 103–130; BP diastolic 64–83
[2017-11-30 05:02] LABS: HEMATOCRIT 26.1 % (36.0-46.0); HEMOGLOBIN 8.8 G/DL (11.9-15.5); MCHC 33.7 G/DL (30.0-36.0); MCV 94.9 FL (83-99); PLATELET COUNT 105 K/uL (156-360); RBC DIS.WIDTH-CV 16.4 % (11.8-14.6); RBC DIS.WIDTH-SD 55.9 % (39-53); RED BLOOD COUNT 2.75 M/uL (3.80-5.20); WHITE BLOOD COUNT 3.6 K/uL (4.1-10.2)
[2017-11-30 05:25] LABS: CHLORIDE 104 MEQ/L (99-109); CREATININE 0.3 MG/DL (0.6-1.3); GFR ESTIMATE (CALCULATED) > 59 mL/min/; GLUCOSE 93 mg/dL (70-99); POTASSIUM 2.8 MEQ/L (3.7-5.4); SODIUM 139 MEQ/L (136-147)
[2017-11-30 05:37] LABS: UREA NITROGEN (BUN) < 2 mg/dL (9-23)
[2017-11-30 08:32] LABS: MAGNESIUM 0.8 mg/dl (1.3-2.7)
[2017-12-01 03:40] VITALS: BP 140/84
[2017-12-01 05:23] LABS: HEMATOCRIT 26.1 % (36.0-46.0); HEMOGLOBIN 8.8 G/DL (11.9-15.5); MCH 32.7 PG (29.0-34.0); MCHC 33.7 G/DL (30.0-36.0); PLATELET COUNT 121 K/uL (156-360); RED BLOOD COUNT 2.69 M/uL (3.80-5.20); WHITE BLOOD COUNT 3.4 K/uL (4.1-10.2)
[2017-12-01 05:59] LABS: CHLORIDE 106 MEQ/L (99-109); CREATININE 0.4 MG/DL (0.6-1.3); GFR ESTIMATE (CALCULATED) > 59 mL/min/; GLUCOSE 81 mg/dL (70-99); SODIUM 141 MEQ/L (136-147); UREA NITROGEN (BUN) 3 mg/dL (9-23)
[2017-12-01 06:01] LABS: MAGNESIUM 1.6 mg/dl (1.3-2.7); PHOSPHORUS 4.1 mg/dL (2.5-4.9); POTASSIUM 3.9 MEQ/L (3.7-5.4)
[2017-12-01 08:25] VITALS: BP 127/85
[2017-12-01 11:17] VITALS: BP 130/77
[2017-12-01 16:39] VITALS: BP 108/57
[2017-12-01 20:20] VITALS: BP 121/81
[2017-12-01 23:57] VITALS: BP 118/76
[2017-12-02 05:46] VITALS: BP 90/56
[2017-12-02 05:55] LABS: CHLORIDE 102 MEQ/L (99-109); CREATININE 0.4 MG/DL (0.6-1.3); GFR ESTIMATE (CALCULATED) > 59 mL/min/; GLUCOSE 80 mg/dL (70-99); POTASSIUM 4.4 MEQ/L (3.7-5.4); SODIUM 141 MEQ/L (136-147); UREA NITROGEN (BUN) 3 mg/dL (9-23)
[2017-12-02 06:08] VITALS: BP 94/55
[2017-12-02 08:19] VITALS: BP 102/57
[2017-12-02] MEDS ORDERED: PERCOCET 5/31 TABLET PO (10:05)
[2017-12-02] MEDS ORDERED: FIRVANQ25 MG/1 ML PO (10:05)
[2017-12-02] MEDS ORDERED: VANCOCIN HCL125 MG PO (12:29)
== END 2017-12-02 13:24 | disposition home or self-care (01) | DRG 372 ==
LOC: EME 06:27 → 4EAST 10:24 → EDOF 10:24 → CANRESERV 10:25 → ENRESERV 10:25 → 4EAST 18:24 → ENRESERV 11-29 16:31 → CANRESERV 11-29 16:48 → ENRESERV 11-29 16:48 → ENPENDDIS 12-02 → 4EAST 12-02 13:24
PROVIDERS: Hospitalist; Internal Medicine; Internal Medicine Gastroenterology; Nurse Practitioner Family
DX: A04.71 Enterocolitis due to Clostridium difficile, recurrent (principal); F10.231 Alcohol dependence with withdrawal delirium; E87.2 Acidosis; D69.59 Other secondary thrombocytopenia; E83.42 Hypomagnesemia; E83.39 Other disorders of phosphorus metabolism; K70.30 Alcoholic cirrhosis of liver without ascites; E86.0 Dehydration; E87.6 Hypokalemia; D63.8 Anemia in other chronic diseases classified elsewhere; E11.9 Type 2 diabetes mellitus without complications; I10 Essential (primary) hypertension; G40.909 Epilepsy, unspecified, not intractable, without status epilepticus; F31.9 Bipolar disorder, unspecified; F43.10 Post-traumatic stress disorder, unspecified; F17.210 Nicotine dependence, cigarettes, uncomplicated; I25.2 Old myocardial infarction; Z79.82 Long term (current) use of aspirin; Z86.73 Personal history of transient ischemic attack (TIA), and cerebral infarction without residual deficits
CPT/HCPCS: 36600; 71045; 74177; 80048; 80053; 80306 90; 81003; 82803; 83605; 83630; 83690; 83735; 84100; 84702; 85027; 85610; 85651; 85730; 86140; 87040; 87177; 87329; 87493; 99281; 99285; G0480; J1170; J1626; J1650; J1885; J2060; J2405; J3010; J3411; J3475; J3480; J7030; J7050; S0028; S0030